=== PATIENT | male | born 1940 | race Caucasian/White ===

== ENCOUNTER 2023-02-12 14:22 | Outpatient (OUT) | payer MEDICARE, SELFPAY ==
--- NOTE | 2023-02-12 14:45 | US_ITS ---
[place] [id number] Patient Name: SAMANTHA FRANCO MRN: [id number] date: 1940 Sex: M Assigned Patient Location: RAD Current Patient Location: [facility] Accession/Order Number: [id number] Exam Date: 02/12/2023 15:15 Report Date: 02/12/2023 20:58 At the request of: IZZY PANG Procedure: US venous doppler LE LT EXAMINATION: US venous doppler LE LT HISTORY: Edema of lower left extremity R60.0 COMPARISON: No relevant comparison available. TECHNIQUE: Grayscale, color and Doppler ultrasound FINDINGS: Region: Left leg Thrombus: None Flow: Normal Augmentation: Normal Compressibility: Normal Other: Moderate subcutaneous edema IMPRESSION: No deep or superficial vein thrombus identified in the left leg *Exam performed in accordance with [facility] practice guidelines- Peripheral venous ultrasound, November 12, 2009. Electronically authenticated by: LEONOR BRIGGS Date: 02/12/2023 20:58
[2023-02-12 15:09] LABS: BUN Creatinine Ratio 20.2; Calcium 9.5 mg/dL (8.5-10.1); Carbon Dioxide 27.2 mmol/L (21.0-32.0); Chloride 106 mmol/L (98-107); Estimated GFR (African America 39 (>=60); Estimated GFR (Non-African Ame 32 (>=60); Glucose 169 mg/dL (74-106); Potassium 4.2 mmol/L (3.5-5.1); Sodium 142 mmol/L (136-145)
== END 2023-02-12 14:23 | disposition home or self-care (01) ==
LOC: RAD 14:33
PROVIDERS: PCP Family Medicine; Visit Provider Nurse Practitioner
DX: R60.0 Localized edema (principal); N18.32 Chronic kidney disease, stage 3b
CPT/HCPCS: 36415; 80048; 93971

== ENCOUNTER 2023-07-19 14:41 | Emergency (ER) | payer MEDICARE, SELFPAY ==
[2023-07-19 14:45] VITALS: BP 179/71; PULSE 90; RESP 18; TEMP 36.6; O2SAT 97; BMI 29.9
--- NOTE | 2023-07-19 14:59 | ED.GENADUL1 ---
HPI - General Adult General Chief complaint: Skin/Abscess/Foreign Body Stated complaint: LOWER EXTREMITY PAIN LEFT LEG Time Seen by Provider: 07/19/23 14:50 Source: patient Mode of arrival: walk-in Limitations: no limitations History of Present Illness HPI narrative: One week ago the patient accidentally scraped the anterior left lower leg. Over the last 2 days he noted pain and swelling to the anterior left lower leg with redness and skin break with weping of clear fluid from the wounds. He denied any chest pain or shortness of breath. No fever or chills. No GI or symptoms. He denied any pain behind the left knee or in the left calf. Related Data Previous Rx's Medication Instructions Recorded cephalexin 500 mg capsule 500 mg PO QID 7 days #28 caps 07/19/23 sulfamethoxazole 800 1 tab PO BID 7 days #14 tabs 07/19/23 mg-trimethoprim 160 mg tablet (Bactrim DS) Allergies Allergy/AdvReac Type Severity Reaction Status Date / Time No Known Drug Allergies Allergy Verified 07/19/23 14:44 PFSH PFS Social History Smoking status: Never smoker Exam Narrative Exam Narrative: Nurses notes and vital signs reviewed and patient is not hypoxic. afebrile General: Well-appearing and in no apparent distress. Skin: Warm, dry, no pallor noted. No rash. Eye: Pupils are equal, round and EOMI. No scleral icterus. Cardiovascular: Regular Rate and Rhythm without murmur, gallop or rub. Respiratory: No accessory muscle use or respiratory distress. Lungs are clear to auscultation, no wheezing, rales or rhonchi Musculoskeletal: Left LE with normal ROM, no calf or popliteal tenderness. Mild left lower extremity edema/swelling. There is erythema anteriorly on the left LE with several area of skin break and weeping of clear fluid. GI: Abdomen is soft, non-distended. Normal bowel sounds. No masses appreciated. No tenderness to palpation. No rebound, guarding, or rigidity noted. Neurological: A&O x4. No cranial nerve dysfunction observed. No truncal ataxia. Moves all extremities. Sensation intact. Psychiatric: Cooperative and interactive. Normal mood and affect. Constitutional Vital Signs, click to edit/add: Last Vital Signs Temp 97.8 F 07/19/23 14:45 Pulse 68 07/19/23 16:25 Resp 18 07/19/23 14:45 BP 138/59 07/19/23 16:25 Pulse Ox 98 07/19/23 16:25 Course Vital Signs Vital signs: Vital Signs Temperature 97.8 F 07/19/23 14:45 Pulse Rate 90 07/19/23 14:45 Respiratory Rate 18 07/19/23 14:45 Blood Pressure 179/71 H 07/19/23 14:45 Pulse Oximetry 97 07/19/23 14:45 Temperature 97.8 F 07/19/23 14:45 Pulse Rate 68 07/19/23 16:25 Respiratory Rate 18 07/19/23 14:45 Blood Pressure 138/59 07/19/23 16:25 Pulse Oximetry 98 07/19/23 16:25 Medical Decision Making MDM Narrative Medical decision making narrative: Ultrasound of left lower extremity was obtained to rule out deep venous thrombosis. Peripheral IV was ordered to be established and blood drawn and sent for testing and so that the patient could receive IV Ancef. Normal WBC. US left LE negative for DVT. BMP negative. Patient informed of results and he refuses offer for admission. He told me that he wants to go home. He was discharged home with prescriptions for Keflex and Bactrim & strict instructions to return if he worsens. ED nurse applied a dressing to the patient's left LE wound. He was ordered to see his PCP for follow up or come back to the ED for recheck if necessary. Lab Data Lab results reviewed: Yes I reviewed the patient's lab results Labs: Lab Results 07/19/23 Range/Units 15:02 WBC 7.7 (4.0-11.0) 10^3/uL RBC 3.77 L (4.70-6.10) 10^6/uL Hgb 10.9 L (14.0-18.0) g/dL Hct 35.8 L (42.0-54.0) % MCV 95.0 H (80.0-94.0) fL MCH 28.9 (25.9-34.0) pg MCHC 30.4 (29.9-35.2) g/dL RDW 18.0 H (11.0-15.0) % Plt Count 181 (150-450) 10^3/uL MPV 8.8 L (9.5-13.5) fL Neut % (Auto) 38.9 L (43.0-75.0) % Lymph % (Auto) 49.2 (20.5-60.0) % Chambers % (Auto) 7.3 (1.7-12.0) % Eos % (Auto) 3.5 (0.9-7.0) % Baso % (Auto) 0.8 (0.2-2.0) % Neut # (Auto) 3.0 (1.4-6.5) 10^3/uL Lymph # (Auto) 3.8 (1.2-3.8) 10^3/uL Chambers # (Auto) 0.6 (0.3-0.8) 10^3/uL Eos # (Auto) 0.3 (0.0-0.7) 10^3/uL Baso # (Auto) 0.1 (0.0-0.1) 10^3/uL Abs Immat Gran (auto) 0.02 (0.00-0.03) 10^3/uL Imm/Tot Granulo (auto) 0.3 (0.0-0.5) % Sodium 142 (136-145) mmol/L Potassium 4.3 (3.5-5.1) mmol/L Chloride 107 (98-107) mmol/L Carbon Dioxide 23.2 (21.0-32.0) mmol/L Anion Gap 16.1 BUN 37.0 H (7.0-18.0) mg/dL Creatinine 1.87 H (0.70-1.30) mg/dL Est GFR ( Amer) 42 L (>=60) Est GFR (Non-Af Amer) 35 L (>=60) BUN/Creatinine Ratio 19.8 Glucose 145 H (74-106) mg/dL Calcium 8.4 L (8.5-10.1) mg/dL Imaging Data US left LE: Radiologist's impression: Patient Name: SAMANTHA FRANCO MRN: [id number] date: 1940 Sex: M Assigned Patient Location: ER Current Patient Location: ER Accession/Order Number: [id number] Exam Date: 07/19/2023 15:40 Report Date: 07/19/2023 16:30 At the request of: QUINCY DELAROSA Procedure: US venous doppler LE LT Ultrasound venous duplex scan left lower extremity CLINICAL: Left leg swelling TECHNIQUE: Holly-scale, color Doppler and Duplex examination of the left lower extremity was performed with and without provocative maneuvers. FINDINGS: Comparison: None. Sonographic examination of the left lower extremity deep venous system to include the common femoral, superficial femoral and popliteal veins, demonstrates normal compressibility, color-flow, respiratory variation, and augmentation. The origin of the greater saphenous vein demonstrates normal compression, and there is normal color-flow in the proximal profunda femoral vein. There is normal compressibility of the peroneal and posterior tibial veins. Small saphenous vein and greater saphenous vein demonstrates normal compressibility in the calf. There is subcutaneous edema in the left calf. IMPRESSION: 1. No deep venous thrombosis or superficial venous thrombus in the left lower extremity. 2. Nonspecific subcutaneous edema of left calf. Electronically authenticated by: RADHA YORK Date: 07/19/2023 16:30 Discharge Plan Discharge Chief Complaint: Skin/Abscess/Foreign Body Clinical Impression: Cellulitis of left anterior lower leg Patient Disposition: Home, Self-Care Time of Disposition Decision: 16:45 Prescriptions / Home Meds: New cephalexin 500 mg capsule 500 mg PO QID 7 Days Qty: 28 0RF sulfamethoxazole-trimethoprim [Bactrim DS] 800-160 mg tablet 1 tab PO BID 7 Days Qty: 14 0RF Instructions: Cellulitis (ED) Stand Alone Forms: Portal Instructions Referrals: LUCIO KELLER [Primary Care Provider] - 1 week
[2023-07-19 15:14] LABS: Basophils Absolute Auto 0.1 10^3/uL (0.0-0.1); Basophils Percent Auto 0.8 % (0.2-2.0); Eosinophils Absolute Auto 0.3 10^3/uL (0.0-0.7); Eosinophils Percent Auto 3.5 % (0.9-7.0); Hematocrit 35.8 % (42.0-54.0); Hemoglobin 10.9 g/dL (14.0-18.0); Immature Granulocytes Abs Auto 0.02 10^3/uL (0.00-0.03); Immature Granulocytes Pct Auto 0.3 % (0.0-0.5); Lymphocytes Absolute Auto 3.8 10^3/uL (1.2-3.8); Lymphocytes Percent Auto 49.2 % (20.5-60.0); Mean Corpuscular HGB Conc 30.4 g/dL (29.9-35.2); Mean Corpuscular Hemoglobin 28.9 pg (25.9-34.0); Mean Platelet Volume 8.8 fL (9.5-13.5); Monocytes Absolute Auto 0.6 10^3/uL (0.3-0.8); Monocytes Percent Auto 7.3 % (1.7-12.0); Neutrophils Percent Auto 38.9 % (43.0-75.0); Platelet Count 181 10^3/uL (150-450); Red Blood Count 3.77 10^6/uL (4.70-6.10); White Blood Count 7.7 10^3/uL (4.0-11.0)
--- NOTE | 2023-07-19 15:15 | PC.NURSE ---
pt presents to ED because patient is a type 2 diabetic and a week ago patient scraped left kelly and now has redness, swelling, and clear drainage coming from the leg. denies any leg or calf pain unless the area is being touched. pulses palpated on left foot. pt does not have a wound doctor, but his daughter is a nurse and has been tending to patients leg over the last week.
[2023-07-19 15:23] LABS: Anion Gap 16.1; BUN Creatinine Ratio 19.8; Calcium 8.4 mg/dL (8.5-10.1); Carbon Dioxide 23.2 mmol/L (21.0-32.0); Chloride 107 mmol/L (98-107); Estimated GFR (African America 42 (>=60); Estimated GFR (Non-African Ame 35 (>=60); Glucose 145 mg/dL (74-106); Potassium 4.3 mmol/L (3.5-5.1); Sodium 142 mmol/L (136-145)
[2023-07-19] MEDS: CEFAZOLIN SODIUM/DEXTROSE,ISO 1 GM/50 ML IV.SOLN IV (15:23)
[2023-07-19 16:25] VITALS: BP 138/59; PULSE 68; O2SAT 98
== END 2023-07-19 17:00 | disposition home or self-care (01) ==
PROVIDERS: Emergency Provider Emergency Medicine; PCP Family Medicine
DX: L03.116 Cellulitis of left lower limb (principal)
CPT/HCPCS: 36415; 80048; 85025; 93971; 96365; 99285

== ENCOUNTER 2023-11-21 14:16 | Emergency (ER) | payer MEDICARE, SELFPAY ==
[2023-11-21 14:33] VITALS: BP 135/61; PULSE 82; TEMP 36.5; O2SAT 99; BMI 31.3
--- NOTE | 2023-11-21 14:59 | ED_ITS ---
HPI HPI - General Adult General Chief complaint: Urogenital-Male Stated complaint: frequent urination, abnormal glucose levels Time Seen by Provider: 11/21/23 14:59 Source: patient and family Mode of arrival: walk-in History of Present Illness HPI narrative: This patient is here with his with frequency of urination patient. He has been going small amounts for several days but today he could not void hardly at all. He was able to provide some small urine specimen here. He is under the care of the urologist, Dr. Crespo, he is already been on Flomax for several months. He has not had any previous surgical procedures or history of urinary retention. He is not running a fever. No rigors shakes or chills. No recent blood in his urine. He is not on any antibiotics. Related Data Home Medications ?Medication ?Instructions ?Recorded ?Confirmed aspirin 81 mg capsule 81 mg PO DAILY 11/21/23 11/21/23 atorvastatin 10 mg tablet 10 mg PO DAILY 11/21/23 11/21/23 benazepril 20 1 tab PO DAILY 11/21/23 11/21/23 mg-hydrochlorothiazide 25 mg tablet insulin glargine 100 unit/mL (3 15 unit subcut DAILY 11/21/23 11/21/23 mL) subcutaneous pen (Lantus Solostar U-100 Insulin) liraglutide 0.6 mg/0.1 mL (18 mg/3 1.2 mg subcut Q24H 11/21/23 11/21/23 mL) subcutaneous pen injector (Victoza 3-Zeyad) magnesium 250 mg tablet 250 mg PO DAILY 11/21/23 11/21/23 omega 8-zuv-tbg-fish oil 1,200 mg 1 cap PO DAILY 11/21/23 11/21/23 (144 mg-216 mg) capsule (Fish Oil) potassium chloride 10 mEq 10 meq PO DAILY 11/21/23 11/21/23 tablet,extended release sildenafil 25 mg tablet 20 mg PO Q24H 11/21/23 11/21/23 tamsulosin 0.4 mg capsule 0.4 mg PO Q24H 11/21/23 11/21/23 vitamin E 670 mg (1,000 unit) 670 mg PO DAILY 11/21/23 11/21/23 capsule Previous Rx's ?Medication ?Instructions ?Recorded cephalexin 500 mg capsule 500 mg PO QID 7 days #28 caps 07/19/23 sulfamethoxazole 800 1 tab PO BID 7 days #14 tabs 07/19/23 mg-trimethoprim 160 mg tablet (Bactrim DS) Allergies Allergy/AdvReac Type Severity Reaction Status Date / Time No Known Drug Allergies Allergy Verified 11/21/23 14:40 Opioid HPI Opioid Management Most Recent Opioid Data: No Data to Display PFSH PFSH Social History Smoking status: Never smoker Exam Narrative Exam Narrative: Awake alert appears in no distress. Denies any sense of bladder expansion symptoms at this time. Johnny sign is negative with no costovertebral angle tenderness to percussion. Overall the skin indicating integument are normal he does not appear ill or toxic. He does not have any tenderness palpation of the bladder. Perfusion is good to the extremities and his vital signs are stable. Constitutional Vital Signs, click to edit/add: Last Vital Signs Temp 97.7 F 11/21/23 14:33 Pulse 82 11/21/23 14:33 Resp 16 11/21/23 14:33 BP 135/61 11/21/23 14:33 Pulse Ox 99 11/21/23 14:33 O2 Del Method Room Air 11/21/23 14:33 Course Vital Signs Vital signs: Vital Signs Temperature 97.7 F 11/21/23 14:33 Pulse Rate 82 11/21/23 14:33 Respiratory Rate 16 11/21/23 14:33 Blood Pressure 135/61 11/21/23 14:33 Pulse Oximetry 99 11/21/23 14:33 Oxygen Delivery Method Room Air 11/21/23 14:33 Temperature 97.7 F 11/21/23 14:33 Pulse Rate 82 11/21/23 14:33 Respiratory Rate 16 11/21/23 14:33 Blood Pressure 135/61 11/21/23 14:33 Pulse Oximetry 99 11/21/23 14:33 Oxygen Delivery Method Room Air 11/21/23 14:33 Medical Decision Making MDM Narrative Medical decision making narrative: A postvoid bladder scan was done and shows no retained urine. His microscopic shows many WBCs. A culture was ordered. Will start him on Cipro. I want to be sure he drinks plenty of fluids Discharge Plan Discharge Stand Alone Forms: Portal Instructions Chief Complaint: Urogenital-Male Clinical Impression: Acute UTI Patient Disposition: Home, Self-Care Time of Disposition Decision: 15:48 Prescriptions / Home Meds: No Action insulin glargine [Lantus Solostar U-100 Insulin] 100 unit/mL (3 mL) insulin pen 15 unit SUBCUT DAILY Victoza 3-Zeyad 0.6 mg/0.1 mL (18 mg/3 mL) pen injector 1.2 mg SUBCUT Q24H aspirin 81 mg capsule 81 mg PO DAILY tamsulosin 0.4 mg capsule 0.4 mg PO Q24H magnesium 250 mg tablet 250 mg PO DAILY atorvastatin 10 mg tablet 10 mg PO DAILY benazepril-hydrochlorothiazide 20-25 mg tablet 1 tab PO DAILY potassium chloride 10 mEq tablet extended release 10 meq PO DAILY sildenafil 25 mg tablet 20 mg PO Q24H omega 7-yvu-pdn-fish oil [Fish Oil] 1,200 (144-216) mg capsule 1 cap PO DAILY vitamin E 670 mg (1,000 unit) capsule 670 mg PO DAILY cephalexin 500 mg capsule 500 mg PO QID 7 Days Qty: 28 0RF sulfamethoxazole-trimethoprim [Bactrim DS] 800-160 mg tablet 1 tab PO BID 7 Days Qty: 14 0RF Print Language: Spanish Additional Instructions: Take Cipro twice a day. Drink extra fluids. Return for any problem use Pyridium Referrals: LUCIO KELLER [Primary Care Provider] - 1 week
[2023-11-21 15:28] LABS: Bilirubin Urine SMALL (NEGATIVE); Blood Urine LARGE (NEGATIVE); Clarity Urine CLOUDY (CLEAR); Color Urine BROWN (YELLOW); Glucose Urine UA NEGATIVE (NEGATIVE); Ketones Urine TRACE mg/dL (NEGATIVE); Leukocyte Esterase Urine LARGE (NEGATIVE); Nitrite Urine NEGATIVE (NEGATIVE); Protein Urine >=300 mg/dL (NEG/TRACE); Specific Gravity Urine >=1.030 (1.005-1.025); Urobilinogen Urine 0.2 EU/dL (0.2-1.0); pH Urine 5.5 (5.0-9.0)
[2023-11-21 15:31] LABS: Urine Microscopic Indicated YES
[2023-11-21 15:35] LABS: WBC Urine >100 #/HPF (NONE SEEN)
[2023-11-21 15:39] LABS: Bacteria Urine MODERATE #/HPF (NONE SEEN); Cast Seen? NONE SEEN #/LPF (NONE SEEN); Crystals Seen? None Seen #/HPF (None Seen); Mucus Urine NONE SEEN (NONE SEEN); Squamous Epithelial Cell Urine FEW #/LPF (NONE/RARE); Urine Culture Indicated YES
--- NOTE | 2023-11-21 15:40 | PC.NURSE ---
PT ADMITS TO BEING NON-COMPLIANT WITH HIS INSULIN SOME DAYS -- STATES HIS SUGARS HAVE BEEN ALL OVER THE PLACE
[2023-11-21] MEDS: CIPROFLOXACIN HCL 500 MG TABLET PO (15:59)
== END 2023-11-21 16:02 | disposition home or self-care (01) ==
PROVIDERS: Emergency Provider Emergency Medicine Emergency Medical Services; PCP Family Medicine
DX: N39.0 Urinary tract infection, site not specified (principal); Z79.82 Long term (current) use of aspirin; Z79.4 Long term (current) use of insulin; Z79.899 Other long term (current) drug therapy
CPT/HCPCS: 81001; 87086; 87150; 87186; 99283

== ENCOUNTER 2024-02-07 10:59 | Outpatient (OUT) | payer MEDICARE, SELFPAY ==
[2024-02-07 11:39] LABS: Hematocrit 31.3 % (42.0-54.0); Hemoglobin 9.8 g/dL (14.0-18.0); Mean Corpuscular HGB Conc 31.3 g/dL (29.9-35.2); Mean Corpuscular Hemoglobin 28.3 pg (25.9-34.0); Mean Corpuscular Volume 90.5 fL (80.0-94.0); Mean Platelet Volume 8.8 fL (9.5-13.5); Platelet Count 190 10^3/uL (150-450); Red Blood Count 3.46 10^6/uL (4.70-6.10); Red Cell Distribution Width 16.7 % (11.0-15.0)
[2024-02-07 11:42] LABS: Anion Gap 14.4; BUN Creatinine Ratio 16.7; Calcium 8.7 mg/dL (8.5-10.1); Carbon Dioxide 26.2 mmol/L (21.0-32.0); Chloride 106 mmol/L (98-107); Estimated GFR (African America 40 (>=60); Estimated GFR (Non-African Ame 33 (>=60); Glucose 150 mg/dL (74-106); Potassium 4.6 mmol/L (3.5-5.1); Sodium 142 mmol/L (136-145)
[2024-02-07 13:14] LABS: Band Neutrophils Absolute 0.1 10^3/uL (0.0-0.3); Lymphocytes Absolute Manual 3.52 10^3/uL (1.20-3.80); Segmented Neut Absolute Manual 3.84 10^3/uL (1.4-6.5)
[2024-02-07 13:15] LABS: Basophils Abs Manual 0.16 10^3/uL (0.00-0.10)
[2024-02-07 13:16] LABS: Acanthocytes 1+; Ovalocytes 1+; Poikilocytosis 1+
== END 2024-02-07 11:00 | disposition home or self-care (01) ==
LOC: LAB 11:00
PROVIDERS: PCP Family Medicine; Visit Provider Internal Medicine Interventional Cardiology
DX: R07.89 Other chest pain (principal); I10 Essential (primary) hypertension
CPT/HCPCS: 36415; 80048; 85007; 85027

== ENCOUNTER 2024-11-09 14:24 | Outpatient (OUT) | payer MEDICARE, SELFPAY ==
[2024-11-09 14:52] LABS: Basophils Percent Auto 0.4 % (0.2-2.0); Eosinophils Absolute Auto 0.1 10^3/uL (0.0-0.7); Eosinophils Percent Auto 1.4 % (0.9-7.0); Hematocrit 32.7 % (42.0-54.0); Hemoglobin 10.2 g/dL (14.0-18.0); Immature Granulocytes Abs Auto 0.05 10^3/uL (0.00-0.03); Immature Granulocytes Pct Auto 0.6 % (0.0-0.5); Lymphocytes Absolute Auto 4.2 10^3/uL (1.2-3.8); Mean Corpuscular HGB Conc 31.2 g/dL (29.9-35.2); Mean Corpuscular Volume 89.8 fL (80.0-94.0); Mean Platelet Volume 8.7 fL (9.5-13.5); Monocytes Absolute Auto 0.5 10^3/uL (0.3-0.8); Monocytes Percent Auto 5.6 % (1.7-12.0); Neutrophils Absolute Auto 4.2 10^3/uL (1.4-6.5); Platelet Count 274 10^3/uL (150-450); Red Blood Count 3.64 10^6/uL (4.70-6.10); Red Cell Distribution Width 16.6 % (11.0-15.0)
[2024-11-09 14:57] LABS: Erythrocyte Sedimentation Rate 28 mm/hr (<=20)
[2024-11-09 15:19] LABS: Alanine Aminotransferase 18 U/L (16-63); Albumin Globulin Ratio 1.1; Albumin Level 3.2 g/dL (3.4-5.0); Alkaline Phosphatase 144 U/L (46-116); Anion Gap 12.1; Aspartate Amino Transferase 10 U/L (15-37); BUN Creatinine Ratio 17.7; Bilirubin Total 0.3 mg/dL (0.2-1.0); C Reactive Protein 1.91 mg/dL (<=0.50); Calcium 9.1 mg/dL (8.5-10.1); Carbon Dioxide 27.6 mmol/L (21.0-32.0); Chloride 110 mmol/L (98-107); Estimated GFR (African America 36 (>=60 mL/min/1.73m^2); Estimated GFR (Non-African Ame 30 (>=60 mL/min/1.73m^2); Glucose 150 mg/dL (74-106); Potassium 4.7 mmol/L (3.5-5.1); Sodium 145 mmol/L (136-145); Total Protein 6.2 g/dL (6.4-8.2); Troponin I High Sensitivity 9.9 pg/mL (4.0-76.1)
== END 2024-11-09 14:25 | disposition home or self-care (01) ==
LOC: LAB 14:25
PROVIDERS: PCP Family Medicine; Visit Provider Internal Medicine Interventional Cardiology
DX: R07.9 Chest pain, unspecified (principal)
CPT/HCPCS: 36415; 80053; 84484; 85025; 85652; 86140

== ENCOUNTER 2024-11-23 13:44 | Outpatient (OUT) | payer MEDICARE, SELFPAY ==
--- NOTE | 2024-11-23 13:49 | CA_ITS ---
Patient Name: SAMANTHA FRANCO MR#: [id number] : 1940 Exam Date: 11/23/2024 Ordering Doctor: DR ALISHA CHAN M.D. ECHOCARDIOGRAM REPORT PROCEDURE: CA ECHO DOPPLER COMPLETE INDICATIONS: LEBLANC, Hx: CABG, Stents, HTN COMPARISON: None. DESCRIPTION: COMPLETE ECHOCARDIOGRAM Real-time transthoracic echocardiography with 2D, M-mode, spectral and color flow Doppler performed. QUALITY: Technical quality was adequate. LEFT VENTRICLE: Normal chamber size. Moderate concentric left ventricular hypertrophy. LV EF: Global left ventricular systolic function is normal; visually estimated ejection fraction is 55%. No significant wall motion abnormalities. DIASTOLIC: Unable to assess diastolic function. ATRIAL SEPTUM: Inadequately seen. LEFT ATRIUM: Mild dilatation. RIGHT ATRIUM: Normal chamber size. RIGHT VENTRICLE: Normal chamber size. Normal right ventricular systolic function. TRICUSPID VALVE: Normal mobility and thickness. No stenosis with trivial regurgitation. Unable to measure right-sided pressures due to lack of measurable tricuspid regurgitation. MITRAL VALVE: Normal mobility and thickness. No evidence of mitral valve stenosis. There is no mitral annular calcification. Trivial mitral regurgitation. AORTIC VALVE: Normal trileaflet appearance. Mildly calcified aortic valve. Normal leaflet mobility. No evidence of aortic valve stenosis. No aortic regurgitation. AORTIC ROOT: Normal diameter and appearance. The ascending aorta is mildly dilated measuring 4.1cm. PULMONIC VALVE: Normal thickness and mobility. No stenosis. Trivial regurgitation. PERICARDIUM: No evidence of pericardial effusion. IVC: Collapses with inspirations. Normal size. CONCLUSION: 1. Global left ventricular systolic function is normal; visually estimated ejection fraction is 55% 2. Normal right ventricular size and systolic function 3. Moderate left ventricular hypertrophy 4. The left atrium is mildly dilated 5. No significant valvular abnormalities 6. The ascending aorta is mildly dilated Adult Echocardiography Procedure Report Left Ventricle LVEDD (3.7 - 5.6 cm): 4.51 cm LVESD (2.2 - 4.0 cm): 3.41 cm LVIVS thickness (0.6 - 1.2 cm): 1.56 cm LVPW thickness (0.5 - 1.0 cm): 1.37 cm e': 0.07 m/s E - e': 12.87 LVOT Max Gradient: 4.83 mm[Hg] LVOT Area (cm2): 1.10 m/s Peak Velocity (LVOT): 1.10 m/s Mean Velocity (LVOT): 0.78 m/s LVOT Diameter 2.53 cm Left Ventricular Ejection Fraction: 50.24 % Left Atrium LA Volume Index (2D A2C): 37.34 ml/m2 Left Atrium Systolic Dimension: 4.32 cm Mitral Valve MV E to A Ratio: 0.80 Mitral Valve A-Wave Peak Velocity: 1.14 m/s Mitral Valve E-Wave Peak Velocity: 0.91 m/s Right Ventricle RV Internal Diastolic Dimension: 3.36 cm Aorta AO Root Diam: 3.99 cm Ascending Ao Diam: 4.06 cm Aortic Valve AoV Area (Peak Charlie): 5.17 cm2, 5.17 cm2 AoV Area (VTI): 5.25 cm2, 5.25 cm2 Peak Velocity(Antegrade Flow): 1.07 m/s Peak Gradient(Antegrade Flow): 4.56 mm[Hg] Mean Velocity(Antegrade Flow): 0.78 m/s Mean Gradient(Antegrade Flow): 2.64 mm[Hg] Velocity Time Integral: 25.61 cm Tricuspid Valve Peak Velocity (Regurgitant Flow): 1.41 m/s Pulmonic Valve Mean Gradient: 2.37 mm[Hg] Mean Velocity: 0.71 m/s Peak Velocity: 1.09 m/s, 1.07 m/s Peak Gradient: 4.61 mm[Hg], 4.73 mm[Hg] Right Atrium Right Atrium Systolic Pressure: 39.87 ml, 39.87 ml Dictated by: Alisha Chan M.D. on 11/23/2024 at 15:28 Approved by: Alisha Chan M.D. on 11/23/2024 at 15:31
== END 2024-11-23 13:45 | disposition home or self-care (01) ==
LOC: CARD 13:45
PROVIDERS: PCP Family Medicine; Visit Provider Internal Medicine Interventional Cardiology
DX: R06.09 Other forms of dyspnea (principal)
CPT/HCPCS: 93306; 93356

== ENCOUNTER 2025-08-04 12:51 | Outpatient (OUT) | payer MEDICARE, SELFPAY ==
--- OUTSIDE RECORDS SUMMARY | 2024-11-04 05:30 | XMS_ITS ---
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 Medications Medication SIG (Take, Route, Frequency, Duration) Notes Start Date End Date Status Tamsulosin HCl 0.4 MG Oral; Duration: 90 Days ActiveSulfamethoxazole-Trimethoprim 800-160 MGOral; Duration: 3 DaysActive Victoza 18 MG/3MLSubcutaneous; Duration: 30 DaysActivetraMADol HCl 50 MGOral; Duration: 2 DaysActivePotassium Chloride ER 10 MEQOral; Duration: 90 DaysActive Finasteride 5 MGOral; Duration: 30 DaysActiveColchicine 0.6 MGOral; Duration: 30 DaysActiveLantus SoloStar 100 UNIT/MLSubcutaneous; Duration: 100 DaysActive Gemtesa 75 MGOral; Duration: 30 DaysActivePhenazopyridine HCl 100 MGOral; Duration: 10 DaysActiveBenazepril-hydroCHLOROthiazide 20-25 MGOral; Duration: 90 DaysActiveAtorvastatin Calcium 10 MGOral; Duration: 90 DaysActiveCephalexin 500 MGOral; Duration: 3 DaysActiveCarvedilol 3.125 MGOral; Duration: 90 DaysActive Clopidogrel Bisulfate 75 MGOral; Duration: 30 DaysActiveAspirin 81 MG1 tablet Orally Once a day; Duration: 30 day(s)5ActiveAmoxicillin-Pot Clavulanate 500-125 MGOral; Duration: 7 DaysActive Social History Tobacco Use: Social History Observation Description Date Details (start date - stop date) Former Smoker NA - NA Tobacco Control (Standard) Question Answer Notes Tobacco use: Former smoker Encounters Encounter Location Date Provider Diagnosis [facility] [address] [place] [address] 11/04/2024 Boyd Frausto Plan Of Treatment No Information Progress Notes * Cas SEGURA FDOB: 2 (85 yo M)Acc No.[id number]:11/04/2024 UNLOCKED PROGRESS NOTE New Patient Patient: Cas ALCANTARA :?Boyd Frausto, DODOB:1940???Age:84 Y ???Sex:MaleDate:11/04/2024Phone:[phone]:[address] , [place], [id number]:Aston Villarreal, Subjective: * Chief Complaints: * 1 . 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 * HPI: ???General:? Patient is referred by for SOB. * Medical History: A rthritis , Hyperlipidemia, Diabetes , Chronic lymphoma , CAD, Elevated prostate specific antigen (PSA), Benign prostatic hyperplasia with lower urinary tract symptoms, symptom details unspecified. * Surgical History: R ight SFA stent 11/25/06, 10/15/08, Stent 11/25/10, Cabag 01/28, Pectoral flap 10/01, Left SFA stent 04/15/14, Stents in both legs 11/08, 02/08, Back surgery , Greenlight laser surgery prostate 10/19/24. * Hospitalization/Major Diagno stic Procedure: D enies Past Hospitalization. * Family History: F ather: diagnosed with Diabetes. M other: diagnosed with Hypertension, Heart Disease.?Brother(s): diagnosed with Diabetes, Hypertension, Heart Disease, Colon cancer. * Social History: ???Tobacco Use:?Tobacco Control (Standard)?Tobacco use:?Former smoker ?Electronic Cigarette use?Current user?No ???Drugs/Alcohol:?Drugs?Have you used drugs other than those for medical reasons in the past 12 months??No ?Does the Patient have a History of Drug Abusein the Past??No ?Caffeine?Intake:?Occasionally ?Do you drink alcohol?: Yes, Socially. ?Do you smoke marijuana?: Denies. * Medications: T aking Amoxicillin-Pot Clavulanate 500-125 MG Tablet Oral , Taking Aspirin 81 MG Tablet Delayed Release 1 tablet Orally Once a day , Taking Atorvastatin Calcium 10 MG Tablet Oral , Taking Benazepril-hydroCHLOROthiazide 20-25 MG Tablet Oral , Taking Carvedilol 3.125 MG Tablet Oral , Taking Cephalexin 500 MG Capsule Oral , Taking Clopidogrel Bisulfate 75 MG Tablet Oral , Taking Colchicine 0.6 MG Tablet Oral , Taking Finasteride 5 MG Tablet Oral , Taking Gemtesa(Vibegron) 75 MG Tablet Oral , Taking Lantus SoloStar(Insulin Glargine) 100 UNIT/ML Solution Pen-injector Subcutaneous , Taking Phenazopyridine HCl 100 MG Tablet Oral , Taking Potassium Chloride ER 10 MEQ Tablet Extended Release Oral , Taking Sulfamethoxazole-Trimethoprim 800-160 MG Tablet Oral , Taking Tamsulosin HCl 0.4 MG Capsule Oral , Taking traMADol HCl 50 MG Tablet Oral , Taking Victoza(Liraglutide) 18 MG/3ML Solution Pen-injector Subcutaneous , Discontinued Aspirin 81 MG Tablet Chewable 1 tablet Orally Once a day , Discontinued Atorvastatin Calcium 10 MG Tablet Oral On hold, Discontinued Augmentin 500-125 MG Tablet 1 tablet Orally BID , Discontinued Benazepril-hydroCHLOROthiazide 20-25 MG Tablet Oral , Discontinued Cholest Off , Discontinued Colchicine 0.6 MG Tablet Oral , Discontinued CoQ10 , Discontinued Finasteride 5 MG Tablet 1 tablet Orally Once a day , Discontinued Fish Oil , Discontinued Flomax 0.4 MG Capsule 1 capsule Orally Once a day , Discontinued Gemtesa(Vibegron) 75 MG Tablet 1 tablet - sample Orally Once a day , Notes to Pharmacist: Lot# [id number] Exp: 05/2027, Discontinued Gemtesa(Vibegron) 75 MG Tablet 1 tablet Orally Once a day , Discontinued Lantus , Discontinued Magnesium , Discontinued Multivitamin , Discontinued Mupirocin 2 % Ointment External , Discontinued Phenazopyridine HCl 100 MG Tablet 1 tablets after meals Orally Three times a day PRN for burning w urination , Discontinued Plavix , Discontinued Potassium Chloride ER 10 MEQ Tablet Extended Release Oral , Discontinued Sildenafil Citrate 20 MG Tablet 1 tablet Orally Once a day for pulmonary hypertension, Discontinued Sulfamethoxazole-Trimethoprim 800-160 MG Tablet 1 tablet Orally BID , Discontinued Tamsulosin HCl 0.4 MG Capsule 1 capsule Orally Once a day , Discontinued Victoza(Liraglutide) 18 MG/3ML Solution Pen-injector Subcutaneous , Discontinued Vitamin B 12 , Discontinued Vitamin E * Allergies: a dhesive, Cefdinir: rash - Onset Date 10/20/2024. Objective: * Vitals: Assessment: Plan: * Treatment: * * Electronic signature of Boyd Frausto DO on 08/04/2025 at 12:56 PM ESTSign off status: PendingVisit Status:?N/S N/C (No Show/No Charge) * Provider: Reynold Frausto DO Date: 0 11/04/2024 Generated for Printing/Faxing/eTransmitting on:?08/04/2025 12:56 PM EST History and Physical Notes * HPI (History of Present Illness) CategorySub-CategoryDetailNotesCategory NotesGeneralPatient is referred by for SOB.
--- OUTSIDE RECORDS SUMMARY | 2024-12-29 07:20 | XMS_ITS ---
Author Organization The [facility] in [place] Address [address] [place] [address] Care Team Providers Care Batch Tester Name Role Phone Aston Villarreal DO Primary Care Provider Prasanna Alvarado [phone] REASON FOR VISIT 8 week f/u Encounters Encounter Location Date Provider Diagnosis [facility] [address] [place] [id number] 12/29/2024 Prasanna Crespo Plan Of Treatment No Information Progress Notes * Cas SEGURA FDOB: 2 (85 yo M)Acc No.[id number]:12/29/2024 UNLOCKED PROGRESS NOTE Patient:Cas EVANGELISTA :?Prasanna Crespo MDDOB:1940???Age:84 Y ???Sex:MaleDate:12/29/2024Phone:[phone]:[facility] [address] [place], [id number]:Aston Villarreal DO Subjective: * Chief Complaints: * 1 . 8 week f/u. * Medical History: Objective: * Vitals: Assessment: Plan: * Treatment: * * Electronic signature of Prasanna Crespo MD, [id number] on 08/04/2025 at 12:57 PM ESTSign off status: PendingVisit Status:?R/S By O/P (Rescheduled by Office/Provider) * Provider: John Crespo MD Date: 0 12/29/2024 Generated for Printing/Faxing/eTransmitting on:?08/04/2025 12:57 PM EST
--- OUTSIDE RECORDS SUMMARY | 2025-02-09 08:00 | XMS_ITS ---
Author Organization [facility] [place] Address [address] [place] [address] Care Team Providers Care Industrial Fabric Cutter Name Role Phone Aston Villarreal DO Primary Care Provider Prasanna Alvarado [phone] REASON FOR VISIT 2mo f/u Encounters Encounter Location Date Provider Diagnosis Urology [facility] [address] [address] 02/09/2025 Prasanna Crespo Plan Of Treatment No Information Progress Notes * Cas SEGURA FDOB: 2 (85 yo M)Acc No.[id number]:02/09/2025 UNLOCKED PROGRESS NOTE Patient:Cas EVANGELISTA :?Prasanna Crespo MDDOB:1940???Age:84 Y ???Sex:MaleDate:02/09/2025Phone:[phone]:[facility] [place], [place]-[address]Pcp:Aston Villarreal DO Subjective: * Chief Complaints: * 1 . 2mo f/u. * Medical History: Objective: * Vitals: Assessment: Plan: * Treatment: * * Electronic signature of Prasanna Crespo MD, [id number] on 08/04/2025 at 12:56 PM ESTSign off status: PendingVisit Status:?N/S N/C (No Show/No Charge) * Provider: John Crespo MD Date: 0 02/09/2025 Generated for Printing/Faxing/eTransmitting on:?08/04/2025 12:56 PM EST
--- OUTSIDE RECORDS SUMMARY | 2025-07-29 14:00 | XMS_ITS | Encounter Summary ---
Author Organization [facility] Address [address] [place] [address] Care Team Providers Care Belt Weaver Name Role Phone AnkurAston zaragoza Primary Care Provider [phone] Reason for Referral * Imaging (Routine) - Pending ReviewSpecialtyDiagnoses / ProceduresReferred By ContactReferred To ContactCardiology Diagnoses Claudication PVD (peripheral vascular disease) Procedures Vascular US lower extremity arterial duplex bilateral with IVONNE Alisha Kleley MD [address] [place] [address] Phone: tel: fax: Referral IDStatusReasonStart DateExpiration DateVisits RequestedVisits [id number] Review Perform Procedure Encounter Details DateTypeDepartmentCare Team (Latest Contact Info)Usckvpfyakx60/11/2025 2:00 PM ESTOffice Visit [facility] [place] [address] [place] [address] Alisha Kelley MD [address] [place] [address] Claudication (Primary Dx); PVD (peripheral vascular disease); Benign hypertensive heart disease without congestive heart failure Social History Tobacco UseTypesPacks/DayYears UsedDateSmoking Tobacco: FormerCigarettes Smokeless Tobacco: NeverAlcohol UseStandard Drinks/WeekCommentsYes2 (1 standard drink = 0.6 oz pure alcohol)[facility] UtilitiesAnswerDate RecordedIn the past 12 months has the electric, gas, oil, or water company threatened to shut off services in your home?No01/30/2024Humiliation, Afraid, Rape, and Kick questionnaireAnswerDate RecordedWithin the last year, have you been afraid of your partner or ex-partner?No01/30/2024Emotionally AbusedNot on file01/30/2024 Physically AbusedNot on file01/30/2024Sexually AbusedNot on file01/30/2024 Overall Financial Resource Strain (CARDIA)AnswerDate RecordedHow hard is it for you to pay for the very basics like food, housing, medical care, and heating?Not very hard01/30/2024UT Safety & EnvironmentAnswerDate RecordedWithin the last year, have you been afraid of your partner or ex-partner?No01/30/2024Emotionally AbusedNot on file01/30/2024hysically AbusedNot on file01/30/2024Sexually Abused Not on file01/30/2024In the past year have you been physically or sexually abused?Unrecognized value01/30/2024TransportationAnswerDate RecordedIn the past 12 months, has lack of transportation kept you from medical appointments or from getting medications?No01/30/2024Lack of Transportation (Non-Medical)Not on file 01/30/2024Housing Stability Vital SignAnswerDate RecordedUnable to Pay for Housing in the Last YearNot on file01/30/2024Number of Places Lived in the Last YearNot on file01/30/2024In the last 12 months, was there a time when you did not have a steady place to sleep or slept in ashelter (including now)?No 01/30/2024Hunger Vital SignAnswerDate RecordedWithin the past 12 months, you worried that your food would run out before you got the money to buymore.Never true4Ran Out of Food in the Last YearNot on file01/30/2024Sex and Gender InformationValueDate RecordedSex Assigned at ZjaipSmeu36/21/2023 5:06 PM EDTLegal BqtUjpz6702/14/2022 9:59 PM EDTGender QmtoettlKrjx70/21/2023 5:06 PM EDT Sexual OrientationHeterosexual or Fkztgqmd12/13/2024 7:13 AM EDTdocumented as of this encounter Last Filed Vital Signs Vital SignReadingTime TakenCommentsBlood Ibfofxvl943/7607/29/2025 2:16 PM EST Suomn144407/29/2025 2:16 PM ESTTemperature--Respiratory Rate--Oxygen Ldrwsantac06% 07/29/2025 2:16 PM ESTInhaled Oxygen Concentration--Ospirx96 kg (216 lb) 07/29/2025 2:16 PM JOMAvmgxg629.3 cm (5' 9 )07/29/2025 2:16 PM ESTBody Mass Index31.9109/29/2024 2:16 PM ESTdocumented in this encounter Progress Notes * Alisha Kelley MD - 07/29/2025 2:00 PM EST Images from the original note were not included. [facility] Cardiology Clinic Note Chief Complaint: Patient here for 8 mo follow up CAD, PVD, and hypertension. Has a lot of claudication and says he would like to have an ultrasound. He doesn't think he restarted lasix, as directed at last visit in November 2024. Says he's had a few episodes of sharp chest pain since last visit, which took my breath away . HPI: Cas Segura is a 83 y.o. male With a known history of coronary artery disease and extensive peripheral arterial disease here due to concerns regarding chest pain or shortness of breath For the past several weeks, the patient has been having episodes both at rest and with exertion. The symptoms are similar to those he had prior to bypass surgery and prior coronary stent procedures. He denies orthopnea, has had no paroxysmal external dyspnea, his lower extremity edema is slightly worse. He has not put on any unintentional weight and in fact he is down 12 pounds since his last visit. He had stopped Coreg as it was not helping and made him feel worse. UPDATE 02/24/2024 Chest pain has improved significantly following PCI Shortness of breath is essentially unchanged No orthopnea, no paroxysmal external dyspnea, no significant worsening in his lower extremity edema No increase in weight Pertinently, he used to see a fabric coating supervisor several years ago. He was started on Revatio UPDATE 08/05/2024 Doing okay from a cardiac standpoint; no chest pain Shortness of breath is stable His new symptom is itching all over the body from the head to the toes with some skin lesions; his PCP is aware and he has apparently seen a thread cutter tender Update 11/05/2024: The patient had prostate surgery a few weeks ago. This was complicated by an infection. He was started on antibiotics. Since then, he has had an episode of sharp chest pain that then transitioned into a dull ache. He has added for the past several days. This is unrelated to exertion. He states that it gets worse if he holds the rails of a chair to stand up; it sounds musculoskeletal. He is short of breath and continues to be short of breath. No orthopnea, no paroxysmal internal dyspnea, no worsening in his lower extremity edema. Update: The patient is doing significantly better. His chest pain has almost resolved. Shortness of breath is stable. For some reason, he is not taking his Lasix; his lower extremity edema has worsened. UPDATE 07/29/2025 As above; He has noticed bilateral calf discomfort. His right leg feels pain even when he or stands. It is associated with numbness. He feels this is probably coming from his back as the whole episode starts with back pain. No rest pain. No skin breakdown, no ulcerations. He describes noncardiac chest discomfort that is sharp and last for seconds and resolves spontaneously. Review of Systems Cardiovascular: Positive for chest pain, claudication, dyspnea on exertion and leg swelling. Respiratory: Positive for shortness of breath (with chest pain). Past Medical History He has a past medical history of Claudication, Coronary artery disease, Diabetes mellitus (CMS/HCC), Hypertension, and PVD (peripheral vascular disease). Surgical History He has a past surgical history that includes Cardiac catheterization; Coronary stent placement; Coronary artery bypass graft; and Uvulopalatopharyngoplasty. Social History He reports that he has quit smoking. His smoking use included cigarettes. He has never used smokeless tobacco. He reports current alcohol use of about 2.0 standard drinks of alcohol per week. He reports that he does not use drugs. Family History No family history on file. Allergies Cefdinir Medications Current Outpatient Medications: aspirin 81 mg chewable tablet, Chew 81 mg in the morning., Disp: , Rfl: atorvastatin (Lipitor) 10 mg tablet, TAKE ONE TABLET BY MOUTH AT BEDTIME, Disp: 90 tablet, Rfl: 3 benazepriL-hydrochlorothiazide (Lotensin HCT) 20-25 mg tablet, Take 1 tablet by mouth in the morning., Disp: 90 tablet, Rfl: 3 carvedilol (Coreg) 3.125 mg tablet, Take 1 tablet (3.125 mg) by mouth with breakfast and with evening meal., Disp: 180 tablet, Rfl: 3 clopidogrel (Plavix) 75 mg tablet, Take 1 tablet (75 mg) by mouth in the morning. Do not miss or skip any doses (Patient not taking: Reported on 11/09/2024), Disp: 30 tablet, Rfl: 6 coenzyme Q-10 200 mg capsule, Take 200 mg by mouth in the morning., Disp: , Rfl: cyanocobalamin (Vitamin B-12) 1,000 mcg tablet, Take by mouth in the morning., Disp: , Rfl: finasteride (Proscar) 5 mg tablet, Oral for 30 Days, Disp: , Rfl: furosemide (Lasix) 20 mg tablet, Take 1 tablet (20 mg) by mouth in the morning for 2 days. (Patientnot taking: Reported on 11/25/2024), Disp: 2 tablet, Rfl: 0 furosemide (Lasix) 20 mg tablet, Take 1 tablet (20 mg) by mouth in the morning., Disp: 90 tablet, Rfl: 3 hydrOXYzine HCL (Atarax) 25 mg tablet, Take by mouth every 4 (four) hours if needed for itching., Disp: , Rfl: insulin glargine (Lantus) 100 unit/mL (3 mL) pen, 15 Units in the morning., Disp: , Rfl: liraglutide (Victoza 2-Zeyad) 0.6 mg/0.1 mL (18 mg/3 mL) injection, 1.2 mg in the morning., Disp: , Rfl: omega 5-aqi-hgh-fish oil 1,200 (144-216) mg capsule, Take 1,200 mg by mouth in the morning., Disp: , Rfl: potassium chloride CR (Klor-Con M10) 10 mEq ER tablet, Take 10 mEq by mouth in the morning., Disp: , Rfl: sildenafil (Revatio) 20 mg tablet, Take 20 mg by mouth once daily as directed., Disp: , Rfl: tamsulosin (Flomax) 0.4 mg 24 hr capsule, , Disp: , Rfl: traMADol (Ultram) 50 mg tablet, Oral for 2 Days, Disp: , Rfl: vibegron (Gemtesa) 75 mg tablet, Take 75 mg by mouth two times daily., Disp: , Rfl: Last Recorded Vitals BP 154/76 (BP Location: Left arm, Patient Position: Sitting) Pulse 77 Ht 1.753 m (5' 9 ) Wt 98 kg (216 lb) SpO2 98% BMI 31.90 kg/m?? Physical Examination: GENERAL: alert and oriented x3, well developed, in no acute distress. HEAD: atraumatic, normocephalic. EYES: NASRA, EOMI. NECK: trachea midline, no JVD present, no carotid bruits present. CARDIAC: S1, S2 present. RRR. No murmur, rubs, or gallops. RESPIRATORY: CTAB, no increased effort of breathing, no rales, rhonchi, or wheezing. ABDOMEN: soft, nontender, nondistended. EXTREMITIES: no lower extremity edema, peripheral pulses are 1+ bilaterally. No rash/skin discoloration present. NEURO: strength/sensation equal and symmetric in bilateral upper and lower extremities. PSYCH: appropriate mood, affect, and judgement. Investigations: Stress test 12/11/2022: No acute or reversible ischemia Diaphragm attenuation artifact Ejection fraction 57% Normal wall motion Cardiovascular Laboratory Report FINAL IMPRESSIONS: Severe in-stent and [place] stenoses of the right superficial femoral artery successfully treated by balloon angioplasty, AngioSculpt balloon angioplasty, and Zilver PTX stent placement Severe stenosis of the left popliteal artery successfully treated by AngioSculpt balloon angioplasty Severe in-stent and de j[place] stenoses of the right external iliac and common iliac artery successfully treated by AngioSculpt balloon angioplasty and balloon angioplasty Moderate disease of the left iliac system Long segment in-stent occlusion of the left superficial femoral artery with reconstitution at the level of the abductor canal RECOMMENDATIONS: Aspirin 81 mg lifelong. Plavix 75 mg daily for minimum of 1 month. The patient will undergo arterial Dopplers to establish a postprocedural baseline Evaluation for possible intervention on the left leg depending on the patient's symptoms. Aggressive cardiovascular risk factor modification. Optimization of medical management; a beta-pam, high-intensity statin therapy, angiotensin-converting enzyme inhibitor are indicated given his vascular disease and diabetic status. Consider addition of low-dose Rivaroxaban based on the COMPASS trial and his vascular disease as well as diabetes Follow up with me in the [facility] in the next 2-3 weeks. Follow up with Dr. Villarreal as scheduled. Impression Bilateral: Left brachial BP: 135mmHg Right ankle BP: 114mmHg; IVONNE: 0.84 Left ankle BP: 82mmHg; IVONNE:0.61 Right: There is irregular heterogeneous plaque at the bifurcation/proximal superficial femoral artery. PSV ratio suggest <50% stenosis. The stent in the proximal-mid superficial femoral artery hasevidence of shadowing with no evidence of narrowing or turbulent flow. Doppler waveforms throughoutthe lower extremity appeared to be biphasic. There is no evidence of vessel narrowing or turbulent flow throughout the lower extremity. Reading Physician: Arnold Sterling Electronically signed on 11/17/2022 08:51:56. 12-lead EKG Sinus, no acute ST T wave abnormalities Cardiovascular Laboratory Report 01/30/2024 FINAL IMPRESSIONS: Severe stenoses of the radial artery graft to the ramus intermedius successfully treated by balloonangioplasty and Synergy drug-eluting stent placement Severe, [place] coronary artery disease involving calcific, complex distal left main stenosis There are 2 out of 3 bypass grafts patent; the saphenous vein graft to the posterior descending artery is known to be occluded Normal right-sided heart pressures and pulmonary capillary wedge pressure Normal cardiac output/cardiac index Severe systemic hypertension Evidence of peripheral arterial disease angiographically RECOMMENDATIONS: Close observation for development of vascular complications given known severe peripheral arterial disease IV hydration to reduce the risk of contrast-induced nephropathy; 150 mL an hour for 10 hours A repeat basic metabolic panel in 5 to 7 days Aspirin 81 mg lifelong Plavix 75 mg daily for minimum of 6 months Optimal medical therapy for coronary artery and peripheral arterial disease should include dual antiplatelet therapy, moderate intensity statin therapy, a beta-pam plus or minus a RAAS inhibitor Should the patient's symptoms not improve, could consider intervention on the distal left main; however, this appears to be unchanged and there is retrograde filling via the ramus intermedius Further investigations and management for peripheral arterial disease as clinically appropriate Follow-up with Dr. Kelley in the next 1 to 2 months PROCEDURES: Ultrasound-guided access to the right common femoral artery, limited femoral angiography, bilateral selective coronary angiography, saphenous vein graft angiography, angiography of the left internal mammary artery graft, angiography of the left subclavian artery LABS: Hb 9.8 g/dL S.cr 1.98 (02/10/2024) Labs 03/31/2024: Hemoglobin is 11 BUN is 39, creatinine is 2.14 12 lead EKG Sinus rhythm, first-degree AV block, left anterior fascicular block, nonspecific ST-T wave abnormalities. Abnormal EKG. Labs 11/05/2024: Hemoglobin is reduced at 10.2 ESR is elevated at 28 BUN 38 creatinine 2.15 C-reactive protein is elevated at 1.91 Echocardiogram 11/23/2024: Global left ventricular systolic function is normal; visually estimated ejection fraction is 55% Normal right ventricular size and systolic function Moderate left ventricular hypertrophy The left atrium is mildly dilated No significant valvular abnormalities The ascending aorta is mildly dilated Assessment: 1. Peripheral vascular disease I73.9: Peripheral vascular disease, unspecified PERIPHERAL ARTERIAL DISEASE (PAD): CARE INSTRUCTIONS 2. Coronary atherosclerosis I25.10: Atherosclerotic heart disease of [place] coronary artery without angina pectoris carvedilol 3.125 mg tablet - Take 1 tablet(s) twice a day by oral route for 90 days. Qty: 180 tablet(s) Refills: 3 Pharmacy: [facility] [id number] 3. Essential hypertension - Uncontrolled I10: Essential (primary) hypertension HIGH BLOOD PRESSURE: CARE INSTRUCTIONS LEARNING ABOUT HIGH BLOOD PRESSURE 4. Exertional shortness of breath 5. Type 1 diabetes mellitus E10.9: Type 1 diabetes mellitus without complications LEARNING ABOUT TYPE 1 DIABETES TYPE 1 DIABETES: CARE INSTRUCTIONS 6. Diabetic peripheral neuropathy E11.40: Type 2 diabetes mellitus with diabetic neuropathy, unspecified 7. Intermittent claudication - Improved: right leg I73.9: Peripheral vascular disease, unspecified 8. CKD 9. 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 Anemia Plan: Guideline directed medical therapy for coronary artery disease should include dual antiplatelet therapy, statin, a beta-pam, and a RAAS inhibitor I have asked him to resume his Lasix; he is to weigh himself daily and if he notices an increase inweight by 3 pounds or more he is to take an extra dose of Lasix Will obtain segmental leg pressures and ankle-brachial indices given his concern regarding claudication. He is to continue his medical therapy for coronary artery disease Treat noncardiac comorbidities as clinically appropriate Return to clinic in 3-4 months or sooner should problems arise Alisha Kelley MD, MPH, FAC, [facility], [facility] Interventional Cardiology Pager Email: [email or web address] documented in this encounter Plan of Treatment NameTypePriorityAssociated DiagnosesOrder ScheduleVascular US lower extremity arterial duplex bilateral with ABIVascular UltrasoundRoutine Claudication PVD (peripheral vascular disease) Expected: 07/29/2025 (Approximate), Expires: 07/29/2027documented as of this encounter Goals GoalPatient Goal TypeAssociated ProblemsRecent ProgressPatient-Stated?Author Take your medication every day LifestylePeripheral arterial disease with history of revascularizationTana Kelly CNP Note: Stressed importance of taking aspirin and plavix daily documented as of this encounter Visit Diagnoses Diagnosis Claudication- Primary Unspecified peripheral vascular disease PVD (peripheral vascular disease) Unspecified peripheral vascular disease Benign hypertensive heart disease without congestive heart failure Benign hypertensive heart disease without heart failure documented in this encounter Care Teams Team MemberRelationshipSpecialtyStart DateEnd Date Aston Villarreal DO [address] [place] [address] PCP - General01/20/24documented as of this encounter
--- OUTSIDE RECORDS SUMMARY | 2025-08-04 12:56 | XMS_ITS | Patient Health Record ---
Author Organization [facility] in [place] Address [address] [place] [address] Care Team Providers Care Coating Engineer Name Role Phone Aston Villarreal DO Primary Care Provider Prasanna Alvarado Unavailable [phone] Boyd Frausto Unavailable [phone] Allergies Allergen (clinical drug ingredient) Drug/Non Drug Allergy documented on EMR Reaction Allergy Type Onset Date Status adhesive (uncoded)UnknownAllergyActivecefdinirCefdinirrashDrug Hwkwhhx7210/20/2024 Active Results Component Value Reference Range Notes CULTURE, URINE w SENSITIVITY Reviewed date:02/02/2025 04:06:55 PM Interpretation: Performing Lab: Notes/Report: CULTURE, URINE w SENSITIVITY Reviewed date:02/02/2025 04:07:10 PM Interpretation: Performing Lab: Notes/Report: UA DIP NONAUTO WO MICRO (810 02) - IN OFFICE Reviewed date:10/27/2024 10:20:33 AM Interpretation: Performing Lab: Notes/Report: COLOR Yellow CLARITYHazyGLUCOSENegBLOOD5+PROTEIN3+NITRITENegLEUKOCYTE ESTERASENegURINE CULTURE (Not yet reviewed by provider) Interpretation: Performing Lab:[facility], [address] [place] [address] PH:[phone] Notes/Report:Specimen Description.CLEAN CATCH URINE Culture CITROBACTER KOSERI (DIVERSUS) 10 to 50,000 CFU/ML Report Status FINAL 10/07/2024 Organism CITROBACTER KOSERI (DIVERSUS) 10 to 50,000 CFU/ML Method SAMUEL Ceftriaxone <=0.25 SUSCEPTIBLE Gentamicin <=1 SUSCEPTIBLE Levofloxacin <=0.12 SUSCEPTIBLE Nitrofurantoin 32 SUSCEPTIBLE Piperacillin/Tazobactam <=4 SUSCEPTIBLE Tobramycin <=1 SUSCEPTIBLE Trimethoprim/Sulfa <=20 SUSCEPTIBLE UA DIP NONAUTO WO MICRO (14770) - IN OFFICE Reviewed date:12/08/2024 01:40:41 PM Interpretation: Performing Lab: Notes/Report: COLORdark hhymvcORZFGTSozqxynLJIURBK62 mg/dlBLOOD5+PROTEIN3+NITRITEnegLEUKOCYTE ESTERASE4+CULTURE, URINE w SENSITIVITY Reviewed date:12/14/2024 09:17:05 AM Interpretation: Performing Lab: Notes/Report: Reason For Referral No Information Medications Medication SIG (Take, Route, Frequency, Duration) Notes Start Date End Date Status Colchicine 0.6 MG Oral; Duration: 30 Days ActiveSulfamethoxazole-Trimethoprim 800-160 MGOral; Duration: 3 DaysNot-Taking Carvedilol 3.125 MGOral; Duration: 90 DaysActiveCephalexin 500 MGOral; Duration: 3 DaysNot-TakingLantus SoloStar 100 UNIT/MLSubcutaneous; Duration: 100 Days ActiveAspirin 81 MG1 tablet Orally Once a day; Duration: 30 day(s)11/04/2024 ActiveCoQ-10ActiveVitamin B 12ActiveBenazepril-hydroCHLOROthiazide 20-25 MGOral; Duration: 90 DaysActiveAmoxicillin-Pot Clavulanate 500-125 MG1 tablet Oral bid; Duration: 7 daysNot-TakingAtorvastatin Calcium 10 MGOral; Duration: 90 Days ActiveKrill OilActivePotassium Chloride ER 10 MEQOral; Duration: 90 DaysActive Gemtesa 75 MGOral; Duration: 30 DaysNot-TakingPhenazopyridine HCl 100 MGOral; Duration: 10 DaysActiveFinasteride 5 MGOral; Duration: 30 DaysNot-TakingVictoza 18 MG/3MLSubcutaneous; Duration: 30 DaysActivetraMADol HCl 50 MGOral; Duration: 2 DaysActiveClopidogrel Bisulfate 75 MGOral; Duration: 30 DaysNot-Taking Ciprofloxacin HCl 250 MG1 tablet Orally every 12 hrs; Duration: 7 days12/14/2024 ActiveTamsulosin HCl 0.4 MGOral; Duration: 90 DaysNot-TakingDoxycycline Hyclate 100 MG1 capsule Orally BID; Duration: 10 days12/08/2024tive Immunizations Vaccine Route Administration Date Status Comme nts Comirnaty Pfizer Syringe Pre -Filled 30 mcg/0.3 mL Unknown 06/18/2024 Administered Social History Tobacco Use: Social History Observation Description Date Details (start date - stop date) Former Smoker NA - NA Tobacco Control (Standard) Question Answer Notes Tobacco use: Former smoker AUDIT-C (Standard) Question Answer Notes Did you have a drink containing alcohol in the p ast year? Yes How often did you have six or more drinks on one occasion in the past year?Never (0 point)How many drinks did you have on a typical day when you were drinking in the past year?1 or 2 drinks (0 point)How often did you have a drink containing alcohol in the past year?Monthly or less (1 point)Vbirmb2YecrucvumknotmPxykqqeb Problems Problem Type SNOMED Code ICD Code Onset Dates Problem Status W/U Status Risk Notes Problem Overactive bladder (291076197) Overactive bladder (N32.81) ActiveconfirmedProblemBenign prostatic hyperplasia (214047429)BPH (benign prostatic hyperplasia) (N40.0)ActiveconfirmedProblemLower urinary tract symptoms due to benign prostatic hypertrophy (00700483330339)Benign prostatic hyperplasia with lower urinary tract symptoms, symptom details unspecified (N40.1)Active confirmed Vital Signs Height 69 in 12/08/2024 Hlgfba892 lbs12/08/2024BMI31.01 kg/m212/08/2024 Procedures Procedure Date Ordered Date Performed Result Body Sit e Green Light 08/06/2024 09/17/2024 N/A Encounters Encounter Location Date Provider Diagnosis [facility]rology [facility] [address] [place] [address] 10/22/2024 Prasanna Crespo UTI (urinary tract infection) N39.0 Urology [facility] [address] [place] [address] 10/27/2024 Prasanna Crespo Urinary tract infection, site not specified N39.0 Pul[facility] [place] [address] [place] [address] 11/04/2024 Boyd Frausto Urology [facility] [address] [place] [address]/milo [facility] [address] [place] [address]/ [facility] [address] [place] [address] 01/13/2025milo [facility] [address] [place] [address]/[facility]o [facility] [address] [address]milo CrespoElevated prostate specific antigen (PSA) R97.20 ; Benign prostatic hyperplasia with lower urinary tract symptoms, symptom details unspecified N40.1 and Overactive bladder N32.81Urology [address] [address] Prasanna CrespoOther specified postprocedural states Z98.890 and Dysuria R30.[address] [address] 12/08/2024milo CrespoUrinary frequency R35.0 ; Elevated prostate specific antigen (PSA) R97.20 ; Benign prostatic hyperplasia with lower urinary tract symptoms, symptom details unspecified N40.1 and Overactive bladder N32.81[facility] [address] [place] [address]/milo Crespo [facility] Encounter Date Diagnosis (ICD Code) Assessment Notes Treatment Notes Treatment Clinical Notes Section Notes 10/27/2024 Urinary tract infection, site no t specified (ICD-10 - N39.0) 12/08/2024Urinary frequency (ICD-10 - R35.0)08/06/2024Elevated prostate specific antigen (PSA) (ICD-10 - R97.20)10/27/2024Other specified postprocedural states (ICD-10 - Z98.890)10/27/2024Dysuria (ICD-10 - R30.0)10/22/2024UTI (urinary tract infection) (ICD-10 - N39.0)08/06/2024enign prostatic hyperplasia with lower urinary tract symptoms, symptom details unspecified (ICD-10- N40.1)12/08/2024 Elevated prostate specific antigen (PSA) (ICD-10 - R97.20)5Benign prostatic hyperplasia with lower urinary tract symptoms, symptom details unspecified (ICD-10- N40.1)08/06/2024Overactive bladder (ICD-10 - N32.81) 12/08/2024Overactive bladder (ICD-10 - N32.81)08/06/2024Other Continue Flomax and finasteride and gemtesa for now. Discussed and recommended greenlight of the prostate for BPH. He would need vascular surgery clearance first for iliac stents. 10/27/2024Other Trial of pyridium for burning. Still healing. Very early. 12/08/2024Other Doxy for 10 days for orchitis. Urine for culture. Stop Augmentin. Plan Of Treatment Pending Test Test Name Order Date URINE CULTURE 10/05/2024 Future Test Test Name Order Date PSA, TOTAL 08/05/2024 Insurance Providers Payer Name Payer Address Payer Phone Subscriber Number Group Number Insured Name Patient Relationship to Insured Coverage Start Date Coverage End Date [employer] MED[employer]ARE ADV PLAN [address] [address] [place] [address] [phone] [id number] Cas Segura Self - patient is the insured 8 Medical (General) History Medical History History ICD Code Arthritis HyperlipidemiaDiabetesChronic lymphomaCADElevated prostate specific antigen (PSA)R97.20Benign prostatic hyperplasia with lower urinary tract symptoms, symptom details lvtfxobvdeaJ38.1Surgical History Surgery Date(Month/Year) Right SFA stent 11/25/06, 10/15/08 Stent 11/25/10 [place] 01/28 Pectoral flap 10/01 Left SFA stent 04/15/14 Stents in both legs 11/08, 02/08 Back surgery Greenlight laser surgery prostate10/19/24
--- OUTSIDE RECORDS SUMMARY | 2025-08-04 12:56 | XMS_ITS | Clinical Summary ---
Author Organization [facility] Address [address] [place] [address] Care Team Providers Care Automobile Mechanic Apprentice Name Role Phone Aston Villarreal Primary Care Provider [phone] Allergies Active AllergyReactionsCriticalityNoted DateCommentsAdhesive Tape (Rosins) Skzdilr1508/06/2014 Medications MedicationSigDispense QuantityRefillsLast FilledStart DateEnd DateStatus insulin glargine (LANTUS SOLOSTAR, BASAGLAR KWIKPEN) 100 unit/mL (3 mL) Inject subcutaneously.Active liraglutide (VICTOZA) 0.6 mg/0.1 mL (18 mg/3 mL) Inject 1.2 mg subcutaneously once daily.Active coenzyme Q10 (COENZYME Q-10) 100 mg cap capsule Take 200 mg by mouth once daily.Active VITAMIN B COMPLEX (SUPER B COMPLEX ORAL) Take by mouth once daily.Active Benazepril-hydroCHLOROthiazide 20-12.5 mg per tablet Take 1 tablet by mouth once daily. Active aspirin 81 mg chewable tablet Take 81 mg by mouth once daily.Active atorvastatin (LIPITOR) 20 mg tablet Take 10 mg by mouth once daily. Active jiygf-tlgvy-6-xqo-pej-tghxnm 592-81-22-50 mg cap Take by mouth.Active potassium chloride SR (MICRO-K) 10 mEq CR capsule Take 10 mEq by mouth twice daily.Active plant stanol raghu (CHOLEST OFF ORAL) Take by mouth.Active sildenafil (REVATIO) 20 mg tablet q 24 HR.Active alpha tocopheryl acetate (VITAMIN E) 400 unit capsule q 24 HR.Active saw/vit E/sod breezy/lyc/beta/pyg (PROSTATE HEALTH ORAL) Take by mouth once daily.Active tretinoin (RETIN-A) 0.1 % cream 07/01/2019Active COLCRYS 0.6 mg tablet 05/26/2020Active prednisoLONE acetate (PRED FORTE, ECONOPRED PLUS) 1 % ophthalmic suspension Active carvedilol (COREG) 3.125 mg tablet Take 3.125 mg by mouth twice daily with meals.Active MULTIVITAMIN ORAL Take by mouth.Active Active Problems ProblemNoted DateDiagnosed IxbvNwftzi66/23/2018Abnormal CT scan, sigmoid colon 07/11/2018Lymphoproliferative fgabztgs57/25/2017Coronary artery disease involving blackfeet coronary iieyii3103/12/2017Essential rjhjbzpyjtvj27/25/2017Type 2 diabetes mellitus without complication, with long-term current use of insulin 03/12/2017 Resolved Problems ProblemNoted DateDiagnosed DateResolved DateDiabetes mforkycc99/25/2017 03/12/2017 Immunizations ImmunizationAdministration DatesNext DueCOVID-19 vaccine, age 12+ yr, bivalent (MODERNA)05/25/2022 Family History RelationStatusCommentsFatherDeceasedMotherDeceased Social History Tobacco UseTypesPacks/DayYears UsedDateSmoking Tobacco: NeverPassive Smoke Exposure: PastSmokeless Tobacco: Never Tobacco Cessation:Counseling Given: Not Answered Alcohol UseStandard Drinks/WeekCommentsNo0 (1 standard drink = 0.6 oz pure alcohol)PHQ-2AnswerDate RecordedPHQ-2 ucvlx568rea Deprivation Index AnswerDate RecordedNational Score (1-100), lower number is lower risk55 01/22/2023State Score (1-10), lower number is lower vhwh942ata from: https://www.neighborhoodatlas.medicine.[facility].edu/. Last address used for jakkbpggsre[address]/22/2023Sex and Gender InformationValueDate Recorded Sex Assigned at BirthNot on fileLegal EpjUsvk2203/07/2017 1:13 PM EDTGender IdentityNot on fileSexual OrientationNot on file Last Filed Vital Signs Vital SignReadingTime TakenCommentsBlood Qokbrgou948/6612/ 9:22 AM EST Guxrn315608/08/2023 9:22 AM AHHYpptkdrnixq95.6 ??C (97.8 ??F)08/08/2023 9:22 AM ESTRespiratory Oddf421510/09/2022 9:22 AM ESTOxygen Ulkkwtcdca81%08/08/2023 9:22 AM ESTInhaled Oxygen Concentration--Gqbmmm47.1 kg (211 lb 13.8 oz)08/08/2023 9:22 AM DVPMwtdka232 cm (5' 8.5 )08/08/2023 9:22 AM ESTBody Mass Index31.74 08/08/2023 9:22 AM EST Plan of Treatment Health MaintenanceDue DateLast DoneCommentsDiabetic Foot Exam2Dilated Retinal Exam1952Urine Albumin:Creatinine Ratio2Anxiety Screening 1960Depression Nuknhvvtr55/04/1960LDL Ipzzchjdvse82/04/1960DTaP,Tdap,Td Vaccine (1 - Tdap)1961neumococcal Vaccine: 50+ (1 of 2 - PCV)1961 Shingrix Vaccine (1 of 2)1992RSV Vaccine (1 - 1-dose 75+ series)2017 KaS4H87/957640/02/2023, 08/01/2021, 01/24/2021, Additional history exists Advance Directive Ocdppuaupn72/01/2025Medicare Advantage Annual Wellness Visit 5Covid-19 Vaccine ( season)511/, 05/25/2022, 05/25/2022, Additional history existsInfluenza Vaccine (#1)04/19/2025 Insurance Care Teams Team MemberRelationshipSpecialtyStart DateEnd Date Aston Villarreal [address] [place] [phone] PCP - GeneralFamily Medicine03/07/17
--- OUTSIDE RECORDS SUMMARY | 2025-08-04 12:57 | XMS_ITS | Clinical Summary ---
Author Organization [facility] Address [address] [place] [address] Care Team Providers Care Hotshot Superintendent Name Role Phone Aston Villarreal DO Primary Care Provider [phone] Allergies Active AllergyReactionsCriticalityNoted QxxpDakwqgzuSihoqkvrOvrrWzb22/04/2025 Medications MedicationSigDispense QuantityRefillsLast FilledStart DateEnd DateStatus aspirin 81 mg chewable tablet Chew 81 mg in the morning.Active insulin glargine (Lantus) 100 unit/mL (3 mL) pen 15 Units in the morning.Active potassium chloride CR (Klor-Con M10) 10 mEq ER tablet Take 10 mEq by mouth in the morning.Active sildenafil (Revatio) 20 mg tablet Take 20 mg by mouth once daily as directed.Active omega 6-ear-aua-fish oil 1,200 (144-216) mg capsule Take 1,200 mg by mouth in the morning.Active coenzyme Q-10 200 mg capsule Take 200 mg by mouth in the morning.Active cyanocobalamin (Vitamin B-12) 1,000 mcg tablet Take by mouth in the morning.Active furosemide (Lasix) 20 mg tablet Indications:Edema of lower extremityTake 1 tablet (20 mg) by mouth in the morning for 2 days. 2 tablet 02/12/2023ctive Additional Information Patient not taking.Reported on 11/25/2024 atorvastatin (Lipitor) 10 mg tablet Indications:Coronary artery disease, unspecified vessel or lesion type, unspecified whether angina present, unspecified whether [place] or transplanted heartTAKE ONE TABLET BY MOUTH AT BEDTIME 90 tablet 305/14/2024Active tamsulosin (Flomax) 0.4 mg 24 hr capsule 01/17/2024ctive carvedilol (Coreg) 3.125 mg tablet Indications:Other chest painTake 1 tablet (3.125 mg) by mouth with breakfast and with evening meal. 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 Do not miss or skip any doses 30 tablet 6001/31/2024ctive benazepriL-hydrochlorothiazide (Lotensin HCT) 20-25 mg tablet Indications:Essential hypertensionTake 1 tablet by mouth in the morning. 90 tablet ctive finasteride (Proscar) 5 mg tablet Oral for 30 Days02/04/2024ctive vibegron (Gemtesa) 75 mg tablet Take 75 mg by mouth two times daily.Active furosemide (Lasix) 20 mg tablet Indications:Benign hypertensive heart disease without congestive heart failure Take 1 tablet (20 mg) by mouth in the morning. 90 tablet 304ctive furosemide (Lasix) 20 mg tablet Indications:Benign hypertensive heart disease without congestive heart failure Take 1 tablet (20 mg) by mouth in the morning. 90 tablet ctive liraglutide (Victoza 2-Zeyad) 0.6 mg/0.1 mL (18 mg/3 mL) injection 1.2 mg in the morning.07/29/2025Discontinued hydrOXYzine HCL (Atarax) 25 mg tablet Take by mouth every 4 (four) hours if needed for itching.07/29/2025Discontinued traMADol (Ultram) 50 mg tablet Oral for 2 Days07/29/2025Discontinued Active Problems ProblemNoted DateDiagnosed DateAllergic ivpummwjgs16/10/2025nemia due to chronic kidney yeyeosj9007/28/2025hronic pruritic rash in adult07/28/2025Knee pain, ikwptxyxl20/10/2025Overactive uzionhl7002/24/2024ulmonary hypertension 02/24/2024Sore fegzmx6502/24/2024Strep iasmbb5602/24/2024hest pain, unspecified type01/30/20249661Vhcgibvew64/13/0828Zsakyu83/13/2024enign hypertensive kidney disease with chronic kidney uqkbxdq2401/30/2024hronic lymphocytic leukemia 01/30/2024KD (chronic kidney disease) stage 3, GFR 30-59 ml/min01/30/2024 Claudication of both lower jizvjmhwtyl76/13/2024yshidrotic uohrow4101/30/2024 Cjxwfhuejdwemw90/13/0623Nvpfqzez84/13/5392Cvwhdnqn84/13/2024Mild memory ydhhpfrdjnf78/13/8270Pjlcanoy72/13/2024Tendinitis of right rotator cuff 01/30/20245286Zxydwbb63/13/2024Wound of lower alvdttcww66/13/2024PH (benign prostatic hyperplasia)01/30/2024enign prostatic hyperplasia with lower urinary tract poerniba47/13/2024oronary artery disease involving coronary bypass graft of [place] heart with angina /13/2024Left buttock pain09/16/2023 09/16/2023Edema of both lower cffvoimmwvn79/27/2023 Assessment & Plan (02/12/2023 4:26 PM EDT): Lasix 20 mg daily x 2 days for edema of BLE LT>RT leg Sending for RLE venous US to r/o DVT s/p recent peripheral intervention/angiogram/angioplasty/stent Send today for BMP to assess renal function PVD (peripheral vascular disease)02/06/2023eripheral arterial disease with history of qelcwlgiuzyyqzeec40/29/2023 Overview (11/15/2022): S/p stent x2 RSFA Assessment & Plan (02/12/2023 4:25 PM EDT): S/p recent LLE angiogram, angioplasty and stent placement. 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 slqkijbq78/09/[address] scan, sigmoid colon07/11/20181870Egvohi38/23/2018Coronary artery disease involving [place] coronary qvziqj4003/12/2017Lymphoproliferative /25/2017Type 2 diabetes mellitus without complication, with long-term current use of vdoofxo1803/12/2017Long term current use of vazjrpi1002/18/2017 Polyneuropathy due to type 2 diabetes ijripgcz03/30/5253Cdxcuwm96/15/2014Chest pain04/26/2014Coronary jwofspgucaesepfn02/11/2014Pruritic cyoyhkrc70/05/2014 Chronic htzdkwpmtzudm83/27/8877Fptivdq45/27/2014Tobacco dependence syndrome 10/15/20136444Mzrkjzbnb86/05/2013Open wound of chest wall04/13/2013trial septal defect within oval fossa02/13/2013rteriosclerosis of arterial coronary artery bypass graft02/06/2013Peripheral vascular jvvsmqe5702/04/2012enign prostatic mbzumujbhhv97/12/7963Owbijquo99/12/2012Coronary akmdaacjsskrylg73/12/2012 Assessment & Plan (02/12/2023 4:25 PM EDT): Coronary artery disease is stable Continue GDMT continue risk factor modifications- heart healthy diet, regular exercise as tolerated and continue all medications. 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 Last 3 Months Social History Tobacco UseTypesPacks/DayYears UsedDateSmoking Tobacco: FormerCigarettes Smokeless Tobacco: Never Tobacco Cessation:Counseling Given: No Alcohol UseStandard Drinks/WeekCommentsYes2 (1 standard drink = 0.6 oz pure alcohol)[facility] UtilitiesAnswerDate RecordedIn the past 12 months has the [employer], gas, oil, or water company threatened to shut off services in your home?No 01/30/2024Humiliation, Afraid, Rape, and Kick questionnaireAnswerDate Recorded Within the last year, have you been afraid of your partner or ex-partner?No 01/30/2024Emotionally AbusedNot on file01/30/2024hysically AbusedNot on file 01/30/2024Sexually AbusedNot on file01/30/2024Overall Financial Resource Strain (CARDIA)AnswerDate RecordedHow hard is it for you to pay for the very basics like food, housing, medical care, and heating?Not very hard01/30/2024UT Safety & EnvironmentAnswerDate RecordedWithin the last year, have you been afraid of your partner or ex-partner?No01/30/2024Emotionally AbusedNot on file01/30/2024 Physically AbusedNot on file01/30/2024Sexually AbusedNot on file01/30/2024In the past year have you been physically or sexually abused?Unrecognized value 01/30/2024TransportationAnswerDate RecordedIn the past 12 months, has lack of transportation kept you from medical appointments or from getting medications?No 01/30/2024Lack of Transportation (Non-Medical)Not on file01/30/2024Housing Stability Vital SignAnswerDate RecordedUnable to Pay for Housing in the Last YearNot on file01/30/2024Number of Places Lived in the Last YearNot on file 01/30/2024In the last 12 months, was there a time when you did not have a steady place to sleep or slept in ashelter (including now)?No01/30/2024Hunger Vital SignAnswerDate RecordedWithin the past 12 months, you worried that your food would run out before you got the money to buymore.Never true01/30/2024an Out of Food in the Last YearNot on file01/30/2024Sex and Gender InformationValueDate RecordedSex Assigned at YcasyEovb31/21/2023 5:06 PM EDTLegal PhsLdem3202/14/2022 9:59 PM EDTGender YlinhxshBsgo90/21/2023 5:06 PM EDTSexual Orientation Heterosexual or Njesrzlc09/13/2024 7:13 AM EDT Last Filed Vital Signs Vital SignReadingTime TakenCommentsBlood Xviezmme565/7607/29/2025 2:16 PM EST Jlrjw663207/29/2025 2:16 PM VEZGakftynmflv89 ??C (98.6 ??F)01/31/2024 12:10 PM EDT Respiratory Nrtp344101/31/2024 12:10 PM EDTOxygen Hohhldfuto16%07/29/2025 2:16 PM ESTInhaled Oxygen Concentration--Mtgiiv00 kg (216 lb)07/29/2025 2:16 PM EST Qxkvlt503.3 cm (5' 9 )07/29/2025 2:16 PM ESTBody Mass Index31.9109/29/2024 2:16 PM EST Plan of Treatment Health MaintenanceDue DateLast DoneCommentsDiabetes: Hemoglobin A1C1942 Medicare Annual Wellness (AWV)2Diabetes: Retinopathy Screening 2Depression Mqjmfvtmo16/04/1954Pneumococcal Vaccine: 50+ Years (1 of 2 - PCV)1961Zoster Vaccines (1 of 2)1Adult Bbtoxyx4107/22/1964Fall Risk Qlgnsjuar30/04/2007COVID-19 Vaccine ( - season)2025 06/18/2024, 12/06/2023, 07/01/2023, Additional history existsInfluenza Vaccine (#1)04/19/2025HIB VaccinesAged OutNo longer eligible based on patient's age to complete this topicHPV VaccinesAged OutNo longer eligible based on patient's age to complete this topicIPV VaccinesAged OutNo longer eligible based on patient's age to complete this topicMeningococcal B VaccineAged OutNo longer eligible based on patient's age to complete this topicMeningococcal VaccineAged OutNo longer eligible based on patient's age to complete this topicRotavirus Vaccines Aged OutNo longer eligible based on patient's age to complete this topic Goals GoalPatient Goal TypeAssociated ProblemsRecent ProgressPatient-Stated?Author Take your medication every day LifestylePeripheral arterial disease with history of revascularizationTana Kelly CNP Note: Stressed importance of taking aspirin and plavix daily Medical Devices ImplantedTypeAreaManufacturerDevice [facility] Expiration DateModel / Serial / Rosy Maguire Mr 3.00 X 32 - [id number] Implanted:Qty: 1 on 01/30/2024 [facility] [id number]/ [id number] / / [id number],Synergy Mr 3.00 X 16 - [id number] Implanted:Qty: 1 on 01/30/2024 [facility] [id number]/ [id number] / / [id number],Zilverptx,6x40mm - [id number] Implanted:Qty: 1 on 11/14/2022 by [facility] [employer] [facility] [id number] / / [id number],Zilverptx,7z446er - [id number] Implanted:Qty: 1 on 11/14/2022 [facility] [id number] / / [id number],Zilverptx,0g273ds - [id number] Implanted:Qty: 1 on 02/07/2023 by [facility] Kelley [facility] [employer] [facility] [id number] / / [id number],Zilverptx,6x40mm - [id number] Implanted:Qty: 1 on 02/07/2023 by [facility] [employer] [facility] [id number] / / [id number] Insurance Advance Directives * Full Code (Latest Code Status on File) Date ActivatedDate InactivatedComments01/30/2024 8:57 PM01/31/2024 5:24 PM * Full Code Date ActivatedDate InactivatedComments01/30/2024 3:51 PM01/30/2024 8:57 PM * Full Code Date ActivatedDate InactivatedComments02/06/2023 6:43 PM02/08/2023 3:01 PM * Full Code Date ActivatedDate InactivatedComments11/14/2022 1:07 PM11/15/2022 1:59 PM * Full Code Date ActivatedDate InactivatedComments11/14/2022 1:07 PM11/14/2022 1:07 PM NameRelationshipHealthcare Agent RelationshipCommunicationTheresa MuratoreChild Health Care Agent* Shahid SeguraChildFirst Alternate Health Care Agent* ED ColtonChildSecond Alternate Health Care Agent* Care Teams Team MemberRelationshipSpecialtyStart DateEnd Date Aston Villarreal DO [address] [place] [phone] PCP - General01/20/24
--- OUTSIDE RECORDS SUMMARY | 2025-08-04 12:57 | XMS_ITS | Clinical Summary ---
Author Organization [facility] Address [address], [address] [place] [address] Care Team Providers Care Special Education Assistant Name Role Phone No, Pcp Primary Care Provider Unavailabl e Allergies Active AllergyReactionsCriticalityNoted DateCommentsAdhesive TapeRashLow 08/06/2014 Medications MedicationSigDispense QuantityRefillsLast FilledStart DateEnd DateStatus aspirin 81 MG chewable tablet Take 1 tablet by mouth dailyActive atorvastatin (LIPITOR) 10 MG tablet Take 1 tablet by mouth daily12/31/2023ctive carvedilol (COREG) 3.125 MG tablet Take 1 tablet by mouth 2 times daily (with meals)01/20/2024ctive clopidogrel (PLAVIX) 75 MG tablet Take 1 tablet by mouth daily01/31/2024ctive coenzyme Q10 200 MG CAPS capsule Take 1 capsule by mouth dailyActive benazepril-hydrochlorthiazide (LOTENSIN HCT) 20-25 MG per tablet Take 1 tablet by mouth every uidgoqe6506/25/2024ctive finasteride (PROSCAR) 5 MG tablet Take 1 tablet by mouth daily02/04/2024ctive insulin glargine (LANTUS;BASAGLAR) 100 UNIT/ML injection pen Inject 15 Units into the skin every morningActive potassium chloride (MICRO-K) 10 MEQ extended release capsule Take 1 capsule by mouth 2 times dailyActive Ocate-3 Fatty Acids (OMEGA-3 FISH OIL) 1200 MG CAPS Take 1 capsule by mouth dailyActive sildenafil (REVATIO) 20 MG tablet Take 1 tablet by mouth daily as neededActive tamsulosin (FLOMAX) 0.4 MG capsule Take 1 capsule by mouth daily01/17/2024ctive vibegron (GEMTESA) 75 MG TABS tablet Take 1 tablet by mouth daily12/05/2023ctive Vitamin E (VITAMIN E/D-ALPHA NATURAL) 268 MG (400 UNIT) CAPS Take 1 capsule by mouth every 24 hoursActive Social History Tobacco UseTypesPacks/DayYears UsedDateSmoking Tobacco: FormerCigarettes Smokeless Tobacco: Never Tobacco Cessation:Counseling Given: Not Answered Alcohol UseStandard Drinks/WeekCommentsYes0 (1 standard drink = 0.6 oz pure alcohol)beer rarelyInterpersonal Safety Domain Source: IP Abuse ScreeningAnswer Date RecordedPhysical vzfzlRavydm79/03/2025Verbal vbwcnDumcfk04/03/2025Emotional vkvmgTdhdrn80/03/2025Financial hzypxUfnctx83/03/2025Sexual rcbqxXldltv94/03/2025 Sex and Gender InformationValueDate RecordedSex Assigned at BirthNot on file Legal EciEquk5409/28/2012 4:43 PM ESTGender IdentityNot on fileSexual Orientation Not on file Last Filed Vital Signs Vital SignReadingTime TakenCommentsBlood Lmqcppeq868/6603 2:45 PM EST Jtnef831110/19/2024 2:45 PM MWMVfovzfjsnif00.2 ??C (97.2 ??F)10/19/2024 2:45 PM ESTRespiratory Ylit816110/19/2024 3:05 PM ESTOxygen Aurlivuoml06%10/19/2024 2:45 PM ESTInhaled Oxygen Concentration--Drhbrj66.2 kg (212 lb)10/19/2024 10:59 AM YWYQhkxxo625.9 cm (6')10/19/2024 10:59 AM ESTBody Mass Index28.75010/19/2024 10:59 AM EST Plan of Treatment Health MaintenanceDue DateLast HyxsAbcptcchWdtamt81[birth year]04/1950Depression Screen 4DTaP/Tdap/Td vaccine (1 - Tdap)1Pneumococcal 50+ years Vaccine (1 of 1 - PCV)1992Shingles vaccine (1 of 2)1992Respiratory Syncytial Virus (RSV) or age 60 yrs+ (1 - 1-dose 75+ series)2017 Annual Wellness Visit (Medicare)09/25/2024Flu vaccine (#1)5COVID-19 Vaccine ( season)/, 12/06/2023, 07/01/2023, Additional history existsHepatitis A vaccineAged OutNo longer eligible based on patient's age to complete this topicHepatitis B vaccineAged OutNo longer eligible based on patient's age to complete this topicHib vaccineAged OutNo longer eligible based on patient's age to complete this topicMeningococcal (ACWY) vaccineAged OutNo longer eligible based on patient's age to complete this topicMeningococcal B vaccineAged OutNo longer eligible based on patient's age to complete this topicPolio vaccineAged OutNo longer eligible based on patient's age to complete this topic Insurance Care Teams Team MemberRelationshipSpecialtyStart DateEnd Date No, Pcp PCP - General10/05/24
--- OUTSIDE RECORDS SUMMARY | 2025-08-04 12:57 | XMS_ITS | Clinical Summary ---
Author Organization [facility] Healthcare Address [address] [place] [address] Care Team Providers Care Foreign Exchange Position Clerk Name Role Phone Aston Villarreal Primary Care Provider [phone] Allergies Active AllergyReactionsCriticalityNoted IkmyTttfnwybUsavumxeCimvQts63/04/2025 Wound Dressing BjljefqtHzshRay61/19/2014 Medications MedicationSigDispense QuantityRefillsLast FilledStart DateEnd DateStatus Vitamin E (Vitamin E/D-Alpha Natural) 268 MG (400 UNIT) capsule Take 400 Units by mouth in the morning.Active sildenafil (Revatio) 20 MG tablet Take 1 tablet by mouth in the morning.Active potassium chloride CR (Klor-Con M10) 10 MEQ ER tablet Take 1 tablet every day by oral route for 90 days.Active omega-3 (fish oil) 1200 MG capsule Take 1,200 mg by mouth in the morning.Active Multiple Vitamin (Daily Vitamin) tablet 1 (one) time each day at the same time.Active coenzyme Q-10 200 MG capsule 1 (one) time each day at the same time.Active clopidogrel (Plavix) 75 MG tablet Take 75 mg by mouth in the morning.Active carvedilol (Coreg) 3.125 MG tablet every 12 (twelve) hours.Active benazepril-hydroCHLOROthiazide (Lotensin HCT) 20-25 MG tablet Take 1 tablet by mouth in the morning.10/15/2022ctive aspirin 81 MG chewable tablet Chew 81 mg in the morning.Active insulin pen needle (NovoTwist Pen Needle) 32G x 5 mm misc every 12 (twelve) hours.Active Blood Glucose Calibration (ACCU-CHEK COMPACT PLUS CONTROL ) TEST TWO TIMES A DAYActive glucose blood (Accu-Chek Shama Plus) test strip Indications:Type 2 diabetes mellitus with diabetic polyneuropathy, with long- term current use of insulin (HCC)USE TO CHECK BLOOD SUGARS THREE TIMES A DAY 300 strip ctive triamcinolone (Kenalog) 0.1 % cream 08/28/2023ctive Vibegron 75 MG tablet Take 75 mg by mouth Daily12/05/2023ctive Plant Sterols and Stanols (CHOLESTOFF PLUS PO) Take by mouthActive atorvastatin (Lipitor) 10 MG tablet Take 10 mg by mouth Daily06/18/2024ctive insulin glargine (Lantus SoloStar) 100 UNIT/ML pen Indications:Type 2 diabetes mellitus with diabetic polyneuropathy, with long- term current use of insulin ([facility])Inject 15 Units under the skin Daily 15 mL tive finasteride (Proscar) 5 MG tablet Discontinued tamsulosin (Flomax) 0.4 MG 24 hr capsule DailyDiscontinued(Therapy completed) Active Problems ProblemNoted DateDiagnosed DateType 2 diabetes mellitus with other circulatory wornwmdhujyeh73/31/2024Type 2 diabetes mellitus with diabetic polyneuropathy 02/22/2023 Assessment & Plan (07/08/2025 12:56 PM EST): During the appointment today all pertinent labs, imaging, health maintenance, and glucose readings were reviewed. Encouraged to check blood glucose throughout the day with some fasting and some PP readings. They are to bring their glucose meter/cgm in to all appointments. All of the patients questions, treatment options, and current care plan and goals were discussed. Acopy of this along with pertinent instructions were given to the patient at the end of the appointment. The patient voices understanding of all of this and is to call in between appointments if they have any problems or questions. Cas Segura control is stable overall. , Will stay on current medications. , Instructions given today include: Insulin instructions and Dietary education. Encouraged him to be more active and build up some strength in his legs. Assessment & Plan (03/08/2025 1:07 PM EDT): During the appointment today all pertinent labs, imaging, health maintenance, and glucose readings were reviewed. Encouraged to check blood glucose throughout the day with some fasting and some PP readings. They are to bring their glucose meter/cgm in to all appointments. All of the patients questions, treatment options, and current care plan and goals were discussed. Acopy of this along with pertinent instructions were given to the patient at the end of the appointment. The patient voices understanding of all of this and is to call in between appointments if they have any problems or questions. Cas Segura blood sugars are worsening. , Will stay on current medications. , Discussed importance of checking blood glucose regularly and bringing them in to their appointment in order for me to better adjust their medications. , Instructions given today include: Insulin instructions and Dietary education. Discussed that most of his medications are preventative and he won't feel different by taking them most of the time. He needs to be consistent in taking his medications and insulin to prevent complications and morbidity. Assessment & Plan (08/18/2024 9:20 AM EST): During the appointment today all pertinent labs, imaging, health maintenance, and glucose readings were reviewed. Encouraged to check blood glucose throughout the day with some fasting and some PP readings. They are to bring their glucose meter/cgm in to all appointments. All of the patients questions, treatment options, and current care plan and goals were discussed. Acopy of this along with pertinent instructions were given to the patient at the end of the appointment. The patient voices understanding of all of this and is to call in between appointments if they have any problems or questions. Cas Segura control is stable overall. , Will stay on current medications. , Discussed dietary changes at length. Encouraged to limit simple carbs and focus more on healthy protein/fat with all meals and snacks. They should also avoid any sugary drinks. , Discussed importance of checking blood glucose regularly and bringing them in to their appointment in order for me to better adjust their medications. , Instructions given today include: Insulin instructions and Dietary education. Ok to stay off victoza and other GLP1 agonists. He is doing well with just the basal insulin at this point. Assessment & Plan (02/17/2024 12:34 PM EDT): During the appointment today all pertinent labs, imaging, health maintenance, and glucose readings were reviewed. Encouraged to check blood glucose throughout the day with some fasting and some PP readings. They are to bring their glucose meter/cgm in to all appointments. All of the patients questions, treatment options, and current care plan and goals were discussed. Acopy of this along with pertinent instructions were given to the patient at the end of the appointment. The patient voices understanding of all of this and is to call in between appointments if they have any problems or questions. Cas Segura control is stable overall. , Will stay on current medications. , Instructions given today include: Insulin instructions. I don't think insurance will cover saxenda as it is only approved for weight loss. He wishes to stay on victoza. Discussed the option of ozempic if he is still having a hard time getting victoza. Assessment & Plan (02/22/2023 10:27 AM EDT): During the appointment today all pertinent labs, imaging, health maintenance, and glucose readings were reviewed. Encouraged to check blood glucose throughout the day with some fasting and some PP readings. They are to bring their glucose meter/cgm in to all appointments. All of the patients questions, treatment options, and current care plan and goals were discussed. Acopy of this along with pertinent instructions were given to the patient at the end of the appointment. The patient voices understanding of all of this and is to call in between appointments if they have any problems or questions. Cas Segura is doing okay. , Instructions given today include: Dietary education. Will stay on current medications. He is to work on checking his bg more often. Given a sample of dexcom G7 with reader to try and see if he can figure out what his bg are doing with what he is eating. Edema of both lower eimwhirscvo01/27/2023 Overview (02/22/2023): Last Assessment & Plan: Lasix 20 mg daily x 2 days for edema of BLE LT>RT leg Sending for RLE venous US to r/o DVT s/p recent peripheral intervention/angiogram/angioplasty/stent Send today for BMP to assess renal function Type 2 diabetes mellitus with stage 4 chronic kidney disease, with long-term current use of tqyybvo58/09/2021Abnormal CT scan, sigmoid colon07/11/2018Anemia 07/11/2018Lymphoproliferative gvlcheau32/25/0069Eseedaf14/15/2014Chest pain 04/26/2014 Overview (02/22/2023): ?MUSCULOSKELETAL VS CARDIAC; NON ISCHEMIC STRESS TEST 05/02 Pruritic ofubrhhb42/05/2014Chronic qzrlguvezphlw02/27/2014 Overview (02/22/2023): S/P STERNAL DEBRIDEMENT FOLLOWED WITH RIGHT PECTORALIS MUSCLE FLAP ON 10/28/13 Uofpvvw6810/15/2013Tobacco dependence /27/2014 Overview (02/22/2023): SECONDHAND SMOKING Ozhdkvner35/05/2013Open wound of chest wall04/13/2013 Overview (02/22/2023): REMOVAL OF 2 STERNAL WIRES Coronary xxeyfahrujlqhihr20/03/2013trial septal defect within oval fossa ([facility])02/13/2013rteriosclerosis of arterial coronary artery bypass graft 02/06/2013Peripheral arterial disease with history of revascularization 02/04/2012 Overview (02/22/2023): S/p stent x2 RSFA Last Assessment & Plan: S/p recent LLE angiogram, angioplasty and stent placement. Continue ASA and plavix Czeejzaq44/12/2012enign prostatic gurkisnylgq94/12/2012Coronary atherosclerosis 01/29/2012 Overview (02/22/2023): Last Assessment & Plan: Coronary artery disease is stable Continue GDMT continue risk factor modifications- heart healthy diet, regular exercise as tolerated and continue all medications. S/P CABG Essential qhakbolfvhvu29/12/2012Generalized oixpeadqmdbwuj06/12/2012Gout 01/29/2012Herpes hmwyfz1801/29/2012 Resolved Problems ProblemNoted DateDiagnosed DateResolved DateLong term current use of insulin 4Polyneuropathy due to type 2 diabetes narycqjs68/30/2015 02/22/2023Type 1 diabetes wgospahk22 Encounters DateTypeDepartmentCare UimyYtwjuvdfevx02/20/2025 10:15 AM ESTOffice Visit [facility] [place] [address] Julia Bergman, Type 2 diabetes mellitus with diabetic polyneuropathy, with long-term current use of insulin (HCC) (Primary Dx); Type 2 diabetes mellitus with other circulatory complications (HCC); Type 2 diabetes mellitus with stage 4 chronic kidney disease, with long-term current use of insulin(HCC)07/08/2025amboo flowsheet [facility], [facility] [place] [address] Julia Bergman DO 07/08/20255755Jswwdg87/19/2025Telephone [facility], [facility] [place] [address] Julia Bergman DO from Last 3 Months Immunizations ImmunizationAdministration DatesNext DueModerna Bivalent Booster Vaccination 05/25/2022 Family History Medical HistoryRelationNameCommentsDiabetesFatherHeart diseaseFatherHeart diseaseMotherRelationNameStatusCommentsFatherDeceasedMotherDeceased Social History Tobacco UseTypesPacks/DayYears UsedDateSmoking Tobacco: FormerCigarettes Smokeless Tobacco: Never Tobacco Cessation:Counseling Given: Not Answered Comments:Smoked for 20 years a pack a day Alcohol UseStandard Drinks/WeekCommentsYes0 (1 standard drink = 0.6 oz pure alcohol)monthly or lessPHQ-2AnswerDate RecordedPatient Health Questionnaire-2 Nkgfx845/20/2025AUDIT-CAnswerDate RecordedQ1: How often do you have a drink containing alcohol?Monthly or less07/08/2025Q2: How many drinks containing alcohol do you have on a typical day when you are drinking?1 or Q3: How often do you have six or more drinks on one occasion?Never07/08/2025Sex and Gender InformationValueDate RecordedSex Assigned at BirthNot on fileLegal Sex Male10/31/2022 6:40 PM EDTGender IdentityNot on fileSexual OrientationNot on file Last Filed Vital Signs Vital SignReadingTime TakenCommentsBlood Dckwtiom713/6207/08/2025 10:49 AM EST Tmnau703507/08/2025 10:49 AM TQPQcqvofmplja29.9 ??C (98.5 ??F)07/08/2025 10:49 AM ESTRespiratory Rate--Oxygen Bmnvufjodq76%07/08/2025 10:49 AM ESTInhaled Oxygen Concentration--Gsacsa29.1 kg (214 lb)07/08/2025 10:49 AM DPSWvnrqe179.3 cm (5' 9 )07/08/2025 10:49 AM ESTBody Mass Index31.6109/07/2024 10:49 AM EST Plan of Treatment DateTypeDepartmentCare Team (Latest Contact Info)Agzaukdwnvm03/23/2026 10:15 AM ESTOffice Visit [facility] [address] [place] [phone] Julia Bergman, DO [address] [place] [address] Health MaintenanceDue DateLast DoneCommentsPneumococcal Vaccine: 65+ Years (1 of 1 - PCV)1992COVID-19 Vaccine ( season)510/, 12/06/2023, 07/01/2023, Additional history existsInfluenza Vaccine (#1) 04/19/2025 Procedures Procedure NamePriorityDate/TimeAssociated DiagnosisCommentsPOCT GLYCOSYLATED HEMOGLOBIN (HGB A1C)Iknbvge9207/08/2025 11:03 AM EST Type 2 diabetes mellitus with diabetic polyneuropathy, with long-term current use of insulin (HCC) from Last 3 Months Results * POCT glycosylated hemoglobin (Hb A1C) docked device (07/08/2025 11:03 AM EST) ComponentValueRef RangeTest MethodAnalysis TimePerformed AtPathologist SignatureHemoglobin A1C7.2Specimen (Source)Anatomical Location / Laterality Collection Method / VolumeCollection TimeReceived TimeBloodVenous blood specimen / Kftaouy5807/08/2025 11:03 AM EST Narrative Authorizing ProviderResult TypeResult StatusJulia Bergman DOPOINT OF CARE TEST ENTER/EDIT ORDERABLESFinal Result from Last 3 Months Insurance Care Teams Team MemberRelationshipSpecialtyStart DateEnd Date Aston Villarreal, [address] [place] [phone] PCP - GeneralFamily Medicine02/22/23
--- OUTSIDE RECORDS SUMMARY | 2025-08-04 12:57 | XMS_ITS ---
Author Organization [facility] Address [address] [place] [address] Care Team Providers Care Continuous Crusher Operator Name Role Phone AnkurAston zaragoza Primary Care Provider [phone] Active Problems ProblemNoted DateDiagnosed DateAllergic qgrdqgdqie80/10/2025nemia due to chronic kidney aagsfsf93/10/2025Chronic pruritic rash in adult07/28/2025Knee pain, iuzgrlecs09/10/2025Overactive pznewap7502/24/2024ulmonary hypertension 02/24/2024Sore cblsop2102/24/2024Strep lwjarv0302/24/2024hest pain, unspecified type01/30/20244875Mtdrvlomf40/13/7995Flozfu29/13/2024enign hypertensive kidney disease with chronic kidney jlkqoxr0001/30/2024hronic lymphocytic leukemia 01/30/2024KD (chronic kidney disease) stage 3, GFR 30-59 ml/min01/30/2024 Claudication of both lower nvbdvvbipdu61/13/2024yshidrotic zbzshv4101/30/2024 Hgtmjicpmbnnlx64/13/3047Oqxcshjt23/13/3722Bcadkegm31/13/2024Mild memory byyyoaoonty34/13/3306Jmqduabx59/13/2024Tendinitis of right rotator cuff 01/30/20242837Gnvmnju65/13/2024Wound of lower /13/2024PH (benign prostatic hyperplasia)01/30/2024enign prostatic hyperplasia with lower urinary tract otrvceio91/13/2024oronary artery disease involving coronary bypass graft of [place] heart with angina syhtmdxs13/13/2024Left buttock pain09/16/2023 09/16/2023Edema of both lower gmgqmendmjl92/27/2023 Assessment & Plan (02/12/2023 4:26 PM EDT): Lasix 20 mg daily x 2 days for edema of BLE LT>RT leg Sending for RLE venous US to r/o DVT s/p recent peripheral intervention/angiogram/angioplasty/stent Send today for BMP to assess renal function PVD (peripheral vascular disease)02/06/2023eripheral arterial disease with history of zbwjxrmploshoxxsu34/29/2023 Overview (11/15/2022): S/p stent x2 RSFA Assessment & Plan (02/12/2023 4:25 PM EDT): S/p recent LLE angiogram, angioplasty and stent placement. 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 elrrouwa89/09/2021 09/16/2023bnormal CT scan, sigmoid colon07/11/20187377Nekfap87/23/2018Coronary artery disease involving [place] coronary gjbsen2103/12/2017Lymphoproliferative hvyxvzvc50/25/2017Type 2 diabetes mellitus without complication, with long-term current use of dbekchf1103/12/2017Long term current use of uaevqdy9702/18/2017 Polyneuropathy due to type 2 diabetes vveeudqm35/30/7592Toxelvy69/15/2014Chest pain04/26/2014Coronary xwqfivbdwjvvshay75/11/2014Pruritic omcqehte65/05/2014 Chronic ctubnhxhfluup69/27/0026Ctbqvsu95/27/2014Tobacco dependence syndrome 10/15/20134850Jnofbawac42/05/2013Open wound of chest wall04/13/2013trial septal defect within oval fossa02/13/2013rteriosclerosis of arterial coronary artery bypass graft02/06/2013Peripheral vascular lrpgvzf7302/04/2012enign prostatic adtzxwhpmtv46/12/7129Aaejogjq27/12/2012Coronary uzrqfjsvvbxpabb40/12/2012 Assessment & Plan (02/12/2023 4:25 PM EDT): Coronary artery disease is stable Continue GDMT continue risk factor modifications- heart healthy diet, regular exercise as tolerated and continue all medications. Essential oyvpwlhtdlua22/12/7605Xiiw86/12/2012Herpes wgetiy8801/29/2012Type 1 diabetes /12/2012Generalized yrxmkodxxbjvzv36 Current Treatment and Therapy Plans No current plan information found. Past Treatment and Therapy Plans No past plan information found. Lifetime Dose Tracking * ChemicalLifetime DoseAutomatic EntryManual EntryFluoro Time93.48 minutes0 lgmocum69.48 minutesAir Kerma4,261.54 mGy0 mGy4,261.54 mGyDose Area Product 570,442 mGy-cm20 mGy-oi1963,442 mGy-cm2
--- NOTE | 2025-08-04 13:00 | CA_ITS ---
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 Interpretive Statements Summary of the findings: There is a 20 mmHg difference of brachial pressures suggesting possible left subclavian stenosis. Right leg: IVONNE= 0.53; TBI= 0.36. Doppler waveforms demonstrate monophasic flow at the posterior tibial and dorsalis pedis arteries. Left leg: IVONNE= 0.50; TBI= 0.23. Doppler waveforms demonstrate monophasic flow at the posterior tibial and dorsalis pedis arteries. Segmental pressures: Segmental pressures suggest significant femoropoliteal disease bilaterally. Pulse volume recordings: PVRs at the high thigh, below knee, and ankle levels show dampened waveforms. Conclusion: Right and left ankle-brachial indices are suggestive of reduced overall arterial flow at rest. Toe-brachial indices are suggestive of PAD. Segmental pressures suggest significant femoropoliteal disease bilaterally. There is suggestion of significant left subclavian stenosis. The study shows evidence of PAD with reduced overall arterial flow at rest. Electronically Signed On 08-04-2025 21:06:10 EST by LORETTA AMOR M.D.
== END 2025-08-04 12:52 | disposition home or self-care (01) ==
LOC: CARD 12:53
PROVIDERS: PCP Family Medicine; Visit Provider Internal Medicine Interventional Cardiology
DX: I73.9 Peripheral vascular disease, unspecified (principal)
CPT/HCPCS: 93923